=== PATIENT | male | born 1960 | race Caucasian/White ===

== ENCOUNTER 2019-05-13 02:14 | Inpatient (IN) | payer MEDICAID, OTHER ==
[~2019-05-13] VITALS: Ht 180.3 cm; Wt 90.3 kg
--- NOTE | 2019-05-13 02:55 | NUR ---
PT BIB RA 889 WITH A C/O RUE PAIN AND BLE PAIN. PT HAS BLE LYMPHEDEMA, BLE WEEPING ULCERS, C/O DIFFICULTY WALKING AND WEAKNESS. PT HAS SMALL WOUNDS/SCAB ALL OVER HIS BLE, BUE, NECK AND FACE. PT HAS A WOUND ON LT THIGH. PT IS C/O SEVERE PAIN IN BUE AND BLE EXTREMITIES. PT WAS TRIAGED AND TAKEN TO ER 2. PT WAS PLACED ON THE MONITOR AND CONTINUOUS PULSE OX.
--- NOTE | 2019-05-13 03:28 | NUR ---
CALLING PT'S , ARI, AT [phone].
--- NOTE | 2019-05-13 03:38 | NUR ---
PT'S ARI ARRIVED AND IS AT THE BEDSIDE.
--- NOTE | 2019-05-13 04:21 | NUR ---
DR CHAMBERLAIN IS AT THE BEDSIDE.
[2019-05-13] MEDS ORDERED: VANCOMYCIN 1 GM in IV D5W 250 ML IV ONE (04:30)
[2019-05-13] MEDS ORDERED: ONDANSETRON 4 MG TAB.RAPDIS SL ONE (04:30)
[2019-05-13] MEDS ORDERED: HYDROMORPHONE INJ 2 MG/ML DISP.SYRIN IM ONE (04:30)
[2019-05-13] MEDS ORDERED: ONDANSETRON 4 MG TAB.RAPDIS ONE (04:34)
[2019-05-13] MEDS ORDERED: HYDROMORPHONE INJ 2 MG/ML DISP.SYRIN ONE (04:34)
[2019-05-13 04:56] LABS: RED BLOOD CELL COUNT(AUTO) 3.64 MIL/uL (4.5-6.0)
[2019-05-13 05:00] LABS: BASOPHILS % (AUTO) 0.3 % (0.0-2.0); HEMATOCRIT 28 % (39-51); HEMOGLOBIN 8.9 g/dL (13.5-17.5); LYMPHOCYTES # (AUTO) 1.5 /CMM (0.8-4.8); LYMPHOCYTES % (AUTO) 9.9 % (20.0-44.0); MEAN CORPUSCULAR HGB CONC 33 g/dl (31.0-36.0); MEAN CORPUSCULAR VOLUME 75 fL (80-96); MONOCYTES # (AUTO) 0.7 /CMM (0.1-1.30); MONOCYTES % (AUTO) 4.6 % (2.0-12.0); NEUTROPHILS # (AUTO) 13.1 /CMM (1.8-8.9); NEUTROPHILS % (AUTO) 84.2 % (43.0-81.0); PLATELET COUNT (AUTO) 476 /CMM (150-450); WHITE BLOOD COUNT (AUTO) 15.6 K/uL (4.3-11.0)
[2019-05-13 05:06] LABS: CALCIUM, SERUM 8.2 mg/dL (8.5-10.1); CREATININE 0.8 mg/dL (0.6-1.3); POTASSIUM 4.3 mmol/L (3.5-5.1)
[2019-05-13 05:12] LABS: ALBUMIN 1.7 g/dL (3.4-5.0); BILIRUBIN,TOTAL 0.2 mg/dL (0.2-1.0); TOTAL PROTEIN, SERUM 9.5 g/dL (6.4-8.2)
--- NOTE | 2019-05-13 05:28 | NUR ---
PT TO BE ADMITTED WITHOUT AN IV. PT TO GET ANTIBIOTICS AND A PICC LINE WHEN ADMITTED, PER DR. CHAMBERLAIN
--- NOTE | 2019-05-13 05:38 | NUR ---
PT IS GOING TO 321-1 MS/
--- NOTE | 2019-05-13 05:57 | NUR ---
REPORT GIVEN TO NOAH DIETZ
--- NOTE | 2019-05-13 06:20 | NUR ---
PT TRANSPORTED TO [facility] VIA [facility] PER PROTOCOL
--- NOTE | 2019-05-13 06:25 | NUR ---
MS/RN NOTES RECEIVED PT. FROM ER VIA MIKE. PT. IS AWAKE, ALERT AND ORIENTED X3. BREATHING EVEN AND UNLABORED ON ROOM AIR. NO SOB, RESPIRATORY DISTRESS NOTED AT THIS TIME. PT. COMPLAINING OF PAIN 5/10 IN HIS BLE AND RIGHT UPPER ARM. PT. STATES THE PAIN IS TOLERABLE AND MUCH IMPROVED FROM EARLIER. ORIENTED PT. TO ROOM. PT. HAS NO IV ACCESS, PER ER NURSE PT. IS PENDING PICC LINE INSERTION. PT. VITAL SIGNS STABLE. WILL ENDORSE [facility]. TO [facility] FOR AD[facility].
[2019-05-13] MEDS ORDERED: MAG HYDROX/AL HYDROX/SIMETH 30 ML UDC PO PRN (06:30)
[2019-05-13] MEDS ORDERED: ZOLPIDEM TARTRATE 5 MG TABLET PO PRN (06:30)
[2019-05-13] MEDS ORDERED: Z GUARD REMEDY 2 OZ OINT TP PRN (06:30)
[2019-05-13] MEDS ORDERED: HYDROCODONE/APAP 5/325MG 1 EACH TABLET PO PRN (06:30)
[2019-05-13] MEDS ORDERED: ONDANSETRON HCL/PF 4 MG/2 ML VIAL IVP PRN (06:30)
[2019-05-13] MEDS ORDERED: MAGNESIUM HYDROXIDE 30 ML UDC PO PRN (06:30)
[2019-05-13] MEDS ORDERED: ACETAMINOPHEN 325 MG TABLET PO PRN (06:30)
--- NOTE | 2019-05-13 07:40 | NUR ---
MS RN ADMITTING NOTES PATIENT RECEIVED VIA GURNEY PER REPAIRING CALIBRATOR. PATIENT AWAKE, A/O X3; PATIENT RESTING COMFORTABLY IN BED; BREATHING EVEN AND UNLABORED; NO S/S OF ACUTE RESPIRATORY DISTRESS NOTED; VITAL SIGNS STABLE; BP: 127/74, PULSE 95 AND RR: 18. PATIENT DENIES SOB; PATIENT VERBALIZED 5/10 PAIN, VERBALIZED PAIN IS MUCH TOLERABLE THAN COMPARED TO YESTERDAY; PATIENT WOUNDS ASSESSED AND PHOTOS TAKEN ACCORDINGLY PER PROTOCOL; WOUNDS CLEANED WITH NS AND DRESSED WITH KERLIX AND MEPILEX; PATIENT HAS NO IV ACCESS AT THIS TIME; AWAITING PICC LINE INSERTION; BED LOCKED IN LOWEST POSITION; SAFETY PRECAUTIONS IN PLACE; SIDE RAILS UP X2; CALL LIGHT WITHIN EASY REACH; WILL CONTINUE TO MONITOR.
[2019-05-13] MEDS ORDERED: FEE PK DOSING 1 MIN EA MC ONE (07:57)
[2019-05-13] MEDS ORDERED: TEMA15CA PO (08:04)
[2019-05-13] MEDS ORDERED: TRAM50TA2 PO (08:07)
[2019-05-13 08:40] VITALS: BP 127/74
--- NOTE | 2019-05-13 09:30 | NUR ---
MS RN NOTES UNABLE TO ADMINISTER ORDERED IV MEDICATIONS; UNABLE TO OBTAIN IV ACCESS D/T GENERALIZED EDEMA. AWAITING IV ACCESS/ PICC LINE INSERTION
--- NOTE | 2019-05-13 10:23 | NUR ---
WOUND CARE CONSULT: PT PRESENTS WITH REDNESS, SWELLING TO LOWER LEGS, THIGHS AND ARMS WITH CRUSTED WOUNDS TO LOWER LEGS, PURULENT AREA TO LEFT THIGH AND DRY WOUNDS/LESIONS ON FACE, ALL PRESENT ON ADMISSION. RECOMMEND SURGICAL AND DPM CONSULTS. DR MAKAYLA VENCES AND DR BORJAS NOTIFIED OF CONSULT REQUESTS. PT CONTINENT AT THIS TIME. PT REFUSED FULL SKIN ASSESSMENT OF RT LEG AND SACRAL AREA. WILL SEE PRN. RECOMMENDATIONS MADE FOR SKIN PROTECTION AND WOUND CARE OF THIGHS. DISCUSSED WITH NURSING STAFF. DEFER TO DPM FOR LOWER LEGS. MD IN AGREEMENT WITH PLAN OF CARE. Addendum: 05/13/19 at 1031 by MICHAEL NARANJO WNDNU PT REFUSED TO HAVE DRESSINGS REMOVED FROM RT ARM AND RT THIGH. RECOMMENDATIONS MADE FOR WOUND CARE BASED ON PHOTOS.
--- NOTE | 2019-05-13 10:58 | NUR ---
rn notes administered narco 5/326 mg po prn for generalized pain , v/s stable. encouraged to increase fluid intake, patient using urinal, seen wound nurse.
--- NOTE | 2019-05-13 13:30 | NUR ---
MS RN NOTES L BASILIC LINE 46 X 2CM INSERTED TODAY 05/13/19 BY FOREIGN POLICY OFFICER. INTACT AND PATENT; FLUSHING WELL; NO S/S OF INFILTRATION NOTED.
[2019-05-13] MEDS: CEFTRIAXONE 1 G in IV D5W 50 ML IV SCH (14:18)
[2019-05-13] MEDS: MORPHINE SULFATE INJ 2 MG/ML DISP.SYRIN IV PRN (14:24)
--- NOTE | 2019-05-13 14:24 | NUR ---
rn notes administered morphine sulfate 1 mg/ml iv push per patient request 12/14, v/s taken bp-130/76,p-80,
[2019-05-13] MEDS: VANCOMYCIN 1.5 GM in IV D5W 500 ML IV SCH ×2 (15:06→21:47)
--- NOTE | 2019-05-13 15:44 | NUR ---
MS RN NOTES WOUND CULTURE SWABS OBTAINED FROM BILATERAL UPPER THIGHS, (RIGHT AND LEFT THIGH WOUNDS).
[2019-05-13 16:33] VITALS: BP 145/89
--- NOTE | 2019-05-13 17:29 | NUR ---
MS ZAMORA NOTES GAVE REPORT TO NOAH ZABALA FROM [facility]. AWAITING AMBULANCE FOR TRANSFER. Addendum: 05/13/19 at 1821 by CHAD CAMACHO RN WRONG ENTRY.
--- NOTE | 2019-05-13 18:29 | NUR ---
MS RN CLOSING NOTES PATIENT RESTING COMFORTABLY IN BED; AWAKE, A/O X4; BREATHING EVEN AND UNLABORED; NO S/S OF ACUTE RESPIRATORY DISTRESS NOTED; PATIENT DENIES SOB; PATIENT VERBALIZED BLE PAIN BUT IS MANAGEABLE; L BASILIC VEIN PICC LINE, INTACT AND PATENT; FLUSHING WELL; NO S/S OF REDNESS OR INFILTRATION NOTED; MULTIPLE WOUNDS CLEANSED WITH NS, AND DRESSED ACCORDINGLY, KERLIX AND MEPILEX APPLIED; BED LOCKED IN LOWEST POSITION; SAFETY PRECAUTIONS IN PLACE, SIDE RAILS UP X2; CALL LIGHT WITHIN EASY REACH. WILL ENDORSE CONTINUITY OF CARE TO ONCOMING SHIFT.
--- NOTE | 2019-05-13 19:45 | NUR ---
MS RN OPENING NOTES RECEIVED PATIENT FROM MORNING SHIFT. ALERT AND ORIENTED X 3 VERBALLY RESPONSIVE AND ABLE TO FOLLOW DIRECTIONS. BREATHING REGULAR AND UNLABORED ON ROOM AIR. LEFT ARM PICC LINE INTACT AND PATENT, FLUSHING WELL WITH NO BLEEDING OR S/S OF INFILTRATION NOTED. BODY ASSESSMENT DONE, SEEN WITH MULTIPLE SCABS AND OPEN WOUNDS AND GENERALIZED EDEMA. NO REPORTS OF PAIN/DISCOMFORT OF THE TIME. BED LOW AND LOCKED ON SEMI FOWLERS POSITION. CALL LIGHT IN REACH. WILL CONTINUE TO MONITOR.
[2019-05-13 20:00] VITALS: BP 137/85
[2019-05-13 22:00] VITALS: BP 137/85
[2019-05-14] MEDS: MORPHINE SULFATE INJ 2 MG/ML DISP.SYRIN IV PRN ×4 (03:29→20:49)
--- NOTE | 2019-05-14 03:40 | NUR ---
MS RN NOTES PATIENT COMPLAINED OF 9/10 BILATERAL LEG PAIN, MORPHINE 1MG GIVEN VIA IV PUSH. VITAL SIGNS WNL. NON-PHARMACOLOGICAL INTERVENTIONS PROVIDED. WILL CONTINUE TO MONITOR.
--- NOTE | 2019-05-14 05:40 | NUR ---
MS RN NOTES CONSENTS FOR CT CHEST, ABDOMEN/PELVIS WITH CONTRAST AND US NEEDLE GUIDED BIOPSY SIGNED AND WITNESSED. ATTACHED TO CHART.
--- NOTE | 2019-05-14 06:30 | NUR ---
MS RN CLOSING NOTES PATIENT IN BED ALERT AND ORIENTED X 3 VERBALLY RESPONSIVE AND ABLE TO FOLLOW DIRECTIONS. BREATHING REGULAR AND UNLABORED ON ROOM AIR. LEFT ARM PICC LINE INTACT AND FLUSHING WELL. ON-GOING TREATMENTS PROVIDED ON MULTIPLE SCATTERED WOUNDS. NO REPORTS OF PAIN/DISCOMFORT OF THE TIME. BED LOW AND LOCKED ON SEMI FOWLERS POSITION. CALL LIGHT IN REACH. WILL ENDORSE TO MORNING SHIFT FOR NILES.
--- NOTE | 2019-05-14 07:56 | NUR ---
MS RN OPENING NOTES RECEIVED PATIENT IN BED, AWAKE, A/O X 3. PATIENT ON ROOM AIR BREATHING WITHOUT EFFORT. NO SIGNS OF DISTRESS OR SOB NOTED AT THIS TIME. PATIENT DENIES PAIN AT THIS MOMENT. LEFT ARM PICC LINE PRESENT, INTACT AND PATENT. NO SIGNS OF INFILTRATION AT THE SITES. MULTIPLE SCATTERED WOUNDS PRESENT ON THE BODY. SAFETY PRECAUTIONS IN PLACE: BED IN LOW POSITION AND LOCKED, RAILS UP X 2, CALL LIGHT WITHIN REACH. WILL CONTINUE TO MONITOR PATIENT.
[2019-05-14 08:00] VITALS: BP 135/93
[2019-05-14 08:01] LABS: ALBUMIN 1.9 g/dL (3.4-5.0); BILIRUBIN,TOTAL 0.5 mg/dL (0.2-1.0); CREATININE 0.8 mg/dL (0.6-1.3); PHOSPHORUS 3.9 mg/dL (2.5-4.9); POTASSIUM 3.9 mmol/L (3.5-5.1); TOTAL PROTEIN, SERUM 10.4 g/dL (6.4-8.2)
[2019-05-14 08:17] LABS: BASOPHILS % (AUTO) 0.1 % (0.0-2.0); EOSINOPHILS % (AUTO) 1.5 % (0.0-6.0); HEMATOCRIT 29 % (39-51); HEMOGLOBIN 9.5 g/dL (13.5-17.5); LYMPHOCYTES # (AUTO) 1.8 /CMM (0.8-4.8); LYMPHOCYTES % (AUTO) 10.6 % (20.0-44.0); MEAN CORPUSCULAR HGB CONC 33 g/dl (31.0-36.0); MEAN CORPUSCULAR VOLUME 75 fL (80-96); MONOCYTES # (AUTO) 1.1 /CMM (0.1-1.30); MONOCYTES % (AUTO) 6.5 % (2.0-12.0); NEUTROPHILS # (AUTO) 13.6 /CMM (1.8-8.9); NEUTROPHILS % (AUTO) 81.3 % (43.0-81.0); PLATELET COUNT (AUTO) 581 /CMM (150-450); RED BLOOD CELL COUNT(AUTO) 3.82 MIL/uL (4.5-6.0); WHITE BLOOD COUNT (AUTO) 16.7 K/uL (4.3-11.0)
[2019-05-14] MEDS: CEFTRIAXONE 1 G in IV D5W 50 ML IV SCH (08:25)
--- NOTE | 2019-05-14 08:30 | NUR ---
MS RN NOTES PATIENT COMPLAIN OF SEVERE LEG PAIN (01/14). HE REFUSED NORCO 5-325 STATING IT DOES NOT HELP HIM. PRN MORPHINE WAS GIVEN. WILL CONTINUE TO MONITOR PATIENT.
[2019-05-14 08:40] LABS: THYROID STIMULATING HORMONE 5.266 uIU/mL (0.358-3.74)
[2019-05-14] MEDS ORDERED: IV NS 0.9% 250 ML IV ONE ×2 (09:41→10:37)
[2019-05-14] MEDS ORDERED: IOHEXOL-350 100 ML VIAL IV ONE (09:41)
[2019-05-14] MEDS: VANCOMYCIN 1.5 GM in IV D5W 500 ML IV SCH ×2 (10:17→21:31)
[2019-05-14] MEDS ORDERED: IOHEXOL-300 100 ML VIAL IV ONE (10:37)
[2019-05-14] MEDS ORDERED: CT SWABBABLE VALVE TRANS SET 1 EA INFUS.SET MC ONE (10:37)
--- NOTE | 2019-05-14 10:58 | NUR ---
Social service consult requested by Dr. Mcintosh due to pt. coming from home and has wounds. Per MD H&P notes, pt has a history of untreated lymphoma for 3 years due to reasons that MD can't quite get straight from him but involves him not liking his oncologist. He has sores all over his body in different stages of healing some are quite large, and both his legs are hyperpigmented with 4+ lymphedema and appear to be infected bilaterally. VACUUM DRIER OPERATOR and rehabilitation case coordinator Odalys met with the pt. bedside. Pt. is alert and oriented x4. Pt's mood is congruent. Pt. resides with his Quynh, in an apartment in [place]. Pt's emergency contact is his Quynh . Pt. has an in-home IHSS caregiver named Julian. Pt. receives approximately 180 + hrs of IHSS per month. Pt. appears to be wanting to go home and states, " the sooner I go home, the better." Pt. is not on dialysis. Pt. needs assistance with his ADL's/IADLS. Pt. was offered SNF placement, however pt. wants to go home. display department manager Odalys to arrange home health services at time of discharge. Pt's IHSS caregiver Julian will filler picker the pt. at time of discharge. No other social service needs are requested at this time. VACUUM DRIER OPERATOR is available, if needed.
--- NOTE | 2019-05-14 11:22 | NUR ---
RN MS NOTES DR. SMART AND DR. VEGA INFORMED OF PT'S CT SCAN OF ABDOMEN AND PELVIS.
--- NOTE | 2019-05-14 16:04 | NUR ---
MS RN NOTES PATIENT COMPLAIN OF SEVERE LEG PAIN (01/14). PRN MORPHINE WAS GIVEN. WILL CONTINUE TO MONITOR PATIENT.
[2019-05-14 16:39] VITALS: BP 130/77
--- NOTE | 2019-05-14 18:44 | NUR ---
MS RN CLOSING NOTES PATIENT IN BED, AWAKE, WATCHING TV. PATIENT IS A/O X 3/4, ON ROOM AIR BREATHING EVENLY AND WITH NO S/S OF DISTRESS OR SOB NOTED AT THIS TIME. PATIENT DENIES PAIN AT THE MOMENT. L BASILIC PICC LINE PRESENT, INTACT AND FLUSHING WELL. NO SIGNS OF INFILTRATION AT THE SITES. WOUND SITES CLEANED AND MEPILEX APPLIED. ALL NEEDS WERE MET. SAFETY MEASURES IN PLACE: BED IN LOW POSITION AND LOCKED, RAILS UP X 2, CALL LIGHT WITHIN REACH. WILL ENDORSE TO SENIOR MEDICAL TECHNOLOGIST NURSE.
--- NOTE | 2019-05-14 19:35 | NUR ---
MS RN NOTES RECEIVED ON BED A/O X4,BREATHING EASY,NO SOB,NOTED MULTIPLE DRY WOUND ON BOTH UPPER AND LOWER EXTREMITIES.WITH LEFT UPPER ARM PICC LINE FOR MEDS.CLAIMED GENERALIZED PAIN THIS TIME 9/10 ON PAIN SCALE,WILL MEDICATE.CALL LIGHT IN REACH,NEEDS ANTICIPATED.
[2019-05-14 20:00] VITALS: BP 122/71
--- NOTE | 2019-05-14 20:49 | NUR ---
MS RN NOTES PAIN MANAGEMENT C/O GENERALIZED PAIN 9/10 ON PAIN SCALE,MEDICATED WITH MORPHINE 1MG IV ORDERED.
--- NOTE | 2019-05-14 21:00 | NUR ---
MS RN NOTES VANCOMYCIN TROUGH WAS 10,DOSE ADMINISTERED
[2019-05-15] MEDS: MORPHINE SULFATE INJ 2 MG/ML DISP.SYRIN IV PRN ×4 (01:05→14:43)
--- NOTE | 2019-05-15 01:05 | NUR ---
MS RN NOTES AWAKE,C/O GENERALIZED PAIN 8/10 ON PAIN SCALE,MEDICATED WITH MORPHINE 1MG IV ORDERED
--- NOTE | 2019-05-15 03:00 | NUR ---
MS RN NOTES SLEEPING THIS TIME
--- NOTE | 2019-05-15 05:13 | NUR ---
AGRICULTURE MANAGER NOTES AWAKE,C/O BILATERAL LOWER EXTREMITIES PAIN 9/10 ON PAIN SCALE,MORPHINE 1MG IV GIVEN ORDERED.
--- NOTE | 2019-05-15 06:53 | NUR ---
MS RN NOTES SLEPT WITH INTERVALS,PAIN MANAGEMENT EFFECTIVE FOR FEW HOURS ONLY.INSTRUCTED TO KEEP LOWER EXTREMITIES ELEVATED.IV ABX TOLERATED WELL.IN NO ACUTE DISTRESS.WILL ENDORSE TO DAY NURSE FOR NILES.
[2019-05-15 07:06] LABS: BASOPHILS % (AUTO) 0.3 % (0.0-2.0); EOSINOPHILS % (AUTO) 2.2 % (0.0-6.0); HEMATOCRIT 28 % (39-51); HEMOGLOBIN 8.9 g/dL (13.5-17.5); LYMPHOCYTES # (AUTO) 1.6 /CMM (0.8-4.8); MEAN CORPUSCULAR HGB CONC 32 g/dl (31.0-36.0); MEAN CORPUSCULAR VOLUME 75 fL (80-96); NEUTROPHILS # (AUTO) 9.3 /CMM (1.8-8.9); NEUTROPHILS % (AUTO) 76.5 % (43.0-81.0); PLATELET COUNT (AUTO) 567 /CMM (150-450); RED BLOOD CELL COUNT(AUTO) 3.67 MIL/uL (4.5-6.0); WHITE BLOOD COUNT (AUTO) 12.2 K/uL (4.3-11.0)
--- NOTE | 2019-05-15 07:20 | NUR ---
M/S RN NOTES PATIENT AWAKE IN BED, ALERT AND ORIENTED X4, NO RESPIRATORY DISTRESS, NO C/O PAIN AT THIS TIME. PATIENT'S SKIN WARM TO TOUCH. IV PICC LINE INTACT AND PATENT. PATIENT'S NEEDS ATTENDED, BED ON LOWEST LOCKED POSITION, CALL LIGHT WITHIN REACH. WILL CONTINUE TO MONITOR PATIENT.
[2019-05-15 07:22] LABS: CALCIUM, SERUM 8.6 mg/dL (8.5-10.1); CREATININE 0.7 mg/dL (0.6-1.3); PHOSPHORUS 4.4 mg/dL (2.5-4.9); POTASSIUM 4.2 mmol/L (3.5-5.1)
[2019-05-15] MEDS: CEFTRIAXONE 1 G in IV D5W 50 ML IV SCH (07:30)
[2019-05-15 08:00] VITALS: BP 132/80
[2019-05-15 08:09] LABS: FREE PSA < 0.06 ng/mL (0.00-45)
[2019-05-15 08:25] LABS: PROSTATE SPECIFIC ANTIGEN SCR < 0.13 ng/mL (0.00-4.00)
[2019-05-15] MEDS: VANCOMYCIN 1.5 GM in IV D5W 500 ML IV SCH (09:24)
[2019-05-15] MEDS ORDERED: FERR325T23 PO (10:51)
[2019-05-15] MEDS ORDERED: ALLA266C2 TP (10:51)
[2019-05-15] MEDS ORDERED: CEPH-570 PO (10:51)
[2019-05-15 11:59] LABS: BAND % (MANUAL) 1 % (0.0-5.0); EOSINOPHILS % (MANUAL) 1 % (0-4); LYMPHOCYTES % (MANUAL) 14 % (16-48); MONOCYTES % (MANUAL) 6 % (0-11.0); MYELOCYTES % 6 % (0-0); NEUTROPHILS % (MANUAL) 72 (42-76)
[2019-05-15] MEDS ORDERED: SOD FERRIC GLUC 125 MG in IV NS 0.9% 100 ML IV SCH (14:00)
[2019-05-15 16:00] VITALS: BP 143/80
--- NOTE | 2019-05-15 19:58 | NUR ---
M/S RN NOTES PATIENT DISCHARGED IN STABLE CONDITION, NO RESPIRATORY DISTRESS, NO C/O PAIN AT THIS TIME. SKIN WARM TO TOUCH. SKIN ASSESSED, MULTIPLE SCABS AND OPEN WOUNDS, PATIENT REFUSED FOR PHOTOS. PATIENT GIVEN DISCHARGE INSTRUCTIONS, VERBALIZED UNDERSTANDING. BELONGINGS ACCOUNTED FOR AND SIGNED. IV PICC LINE REMOVED AND APPLIED PRESSURE DRESSING. PATIENT'S NEEDS ATTENDED. PATIENT LEFT WITH PARAMEDICS AND CAREGIVER DESIREE MCKEON.
[2019-05-16 15:06] LABS: *SPE A/G RATIO 0.3 (0.7-1.7); *SPE ALBUMIN 2.1 g/dL (2.9-4.4); *SPE ALPHA-1-GLOBULIN 0.4 g/dL (0.0-0.4); *SPE ALPHA-2-GLOBULIN 1.2 g/dL (0.4-1.0); *SPE BETA GLOBULIN 1.3 g/dL (0.7-1.3); *SPE GLOBULIN, TOTAL 7.2 g/dL (2.2-3.9); *SPE M-SPIKE 2.1 g/dL (Not Observed); *SPEGAMMA GLOBULIN 4.1 g/dL (0.4-1.8)
== END 2019-05-15 19:40 | disposition home or self-care (01) | DRG 710 ==
LOC: ER 02:15 → MED 05:41
PROVIDERS: ADMIT Student in an Organized Health Care Education/Training Program; ATTEND Student in an Organized Health Care Education/Training Program
PROC: 05H633Z Insertion of Infusion Device into Left Subclavian Vein, Percutaneous Approach (ICD-10-PCS; principal; 2019-05-13)
PROC: 07BJ3ZX Excision of Left Inguinal Lymphatic, Percutaneous Approach, Diagnostic (ICD-10-PCS; 2019-05-14)
DX: A41.9 Sepsis, unspecified organism (principal); E44.0 Moderate protein-calorie malnutrition; L03.115 Cellulitis of right lower limb; E87.1 Hypo-osmolality and hyponatremia; K76.0 Fatty (change of) liver, not elsewhere classified; E88.09 Other disorders of plasma-protein metabolism, not elsewhere classified; L03.116 Cellulitis of left lower limb; R16.2 Hepatomegaly with splenomegaly, not elsewhere classified; Z85.72 Personal history of non-Hodgkin lymphomas; Z98.890 Other specified postprocedural states; D50.9 Iron deficiency anemia, unspecified; Z91.19 Patient's noncompliance with other medical treatment and regimen; D64.9 Anemia, unspecified; D47.3 Essential (hemorrhagic) thrombocythemia; Z68.27 Body mass index [BMI] 27.0-27.9, adult; M79.662 Pain in left lower leg; M79.661 Pain in right lower leg; R74.8 Abnormal levels of other serum enzymes; K80.20 Calculus of gallbladder without cholecystitis without obstruction; N28.9 Disorder of kidney and ureter, unspecified; N28.1 Cyst of kidney, acquired; Z85.79 Personal history of other malignant neoplasms of lymphoid, hematopoietic and related tissues
CPT/HCPCS: 36415; 36569; 71260-TC; 76700-TC; 76942-TC; 80048-TC; 80053-TC; 80061-TC; 80202-TC; 82378; 82728-TC; 82784; 83540-TC; 83735-TC; 84100-TC; 84153-TC; 84154-TC; 84155; 84165; 84443-TC; 85025-TC; 85610-TC; 85730-TC; 86301; 86334; 87040-TC; 87070-TC; 87081-TC; 87186-TC; 97116-TC; 97530-TC; A6403; C1751; G0378; J0696; J1170; J2270; J2916; J3370; J7030; J7040; J7050; J7060; Q0162; Q9967

== ENCOUNTER 2019-09-30 17:42 | Inpatient (IN) | payer MEDICAID ==
[~2019-09-30] VITALS: Ht 180.3 cm; Wt 91.6 kg
[~2019-09-30 17:42] MED LIST: ALLA266C2 TP; CEPH-570 PO; FERR325T23 PO; TEMA15CA PO; TRAM50TA2 PO
--- NOTE | 2019-09-30 17:45 | NUR ---
PT BIB RA 102 FROM HOME C/O FEVER AND SOB, PER REPORT CAREGIVER AND FAMILY UNABLE TO CARE FOR THE PT, PT IS AAOX3, NOTED RESPIRATORY DISTRESS ,HOOKED TO PLANT ENGINEERING SUPERVISOR, KEPT RESTED AND COMFORTABLE, WILL CONTINUE TO MONITOR.
--- NOTE | 2019-09-30 17:50 | NUR ---
SEEN AND EXAMINED BY .
--- NOTE | 2019-09-30 17:52 | NUR ---
CALLED NURSING SUP FOR MIDLINE RN, [facility] ETA [phone]
[2019-09-30] MEDS ORDERED: IV NS 0.9% 500 ML BAG IV ONE (18:00)
[2019-09-30] MEDS ORDERED: PIPERACILLIN /TAZOBACTAM 3.375 G in IV D5W 50 ML IV ONE (18:00)
[2019-09-30] MEDS ORDERED: VANCOMYCIN 1 GM in IV D5W 250 ML IV ONE (18:00)
[2019-09-30] MEDS ORDERED: ACETAMINOPHEN ES 500 MG TABLET PO ONE (18:00)
[2019-09-30 18:13] LABS: BASOPHILS % (AUTO) 0.2 % (0.0-2.0); HEMATOCRIT 32 % (39-51); HEMOGLOBIN 10.7 g/dL (13.5-17.5); LYMPHOCYTES # (AUTO) 1.5 /CMM (0.8-4.8); LYMPHOCYTES % (AUTO) 8.8 % (20.0-44.0); MEAN CORPUSCULAR HGB CONC 33 g/dl (31.0-36.0); MEAN CORPUSCULAR VOLUME 76 fL (80-96); MONOCYTES # (AUTO) 1.7 /CMM (0.1-1.30); MONOCYTES % (AUTO) 10.1 % (2.0-12.0); NEUTROPHILS # (AUTO) 13.9 /CMM (1.8-8.9); NEUTROPHILS % (AUTO) 80.9 % (43.0-81.0); PLATELET COUNT (AUTO) 446 /CMM (150-450); RED BLOOD CELL COUNT(AUTO) 4.22 MIL/uL (4.5-6.0); WHITE BLOOD COUNT (AUTO) 17.2 K/uL (4.3-11.0)
[2019-09-30] MEDS ORDERED: ACETAMINOPHEN ES 500 MG TABLET ONE (18:15)
--- NOTE | 2019-09-30 18:15 | NUR ---
ER PHLEB AT BEDSIDE FOR BLOOD DRAW.
--- NOTE | 2019-09-30 18:30 | NUR ---
ROD STRAIGHTENER AT BEDSIDE FOR XRAY.
--- NOTE | 2019-09-30 18:35 | NUR ---
URINE SPECIMEN COLLECTED VIA PALMER CATH AND SENT TO LAB.
--- NOTE | 2019-09-30 18:40 | NUR ---
PT HAS BLE EDEMA, WITH FLAKING SKIN ON THE SOLES OF BILATERAL FEET. PT ALSO HAS RUE EDEMA. PT IS NON AMBULATORY AND HAS A DAVID LIFT SHEET UNDER HIM. PT'S BUE ARE SCARRED AND 20G IV WAS STARTED IN RUE. 22G IV IN RT HAND IS NOT WORKING AND HAS BEEN REMOVED. AREA WAS COVERED WITH A 2X2 AND TAPE. NO SIGNS OF BLEEDING NOTED.
--- NOTE | 2019-09-30 18:50 | NUR ---
CALLED PT'S ARI NO ANSWER.
[2019-09-30 18:53] LABS: ALANINE AMINOTRANSFERASE 34 U/L (12-78); ALBUMIN 2.1 g/dL (3.4-5.0); ALKALINE PHOSPHATASE 91 U/L (46-116); ASPARTATE AMINOTRANSFERASE 85 U/L (15-37); B-TYPE NATRIURETIC PEPTIDE 629 PG/ML (0-125); BILIRUBIN,TOTAL 0.8 mg/dL (0.2-1.0); CARBON DIOXIDE 19 mmol/L (21-32); CHLORIDE 88 mmol/L (98-107); CREATININE 2.5 mg/dL (0.6-1.3); GLUCOSE 139 mg/dL (74-106); POTASSIUM 4.6 mmol/L (3.5-5.1); SODIUM SERUM 121 mmol/L (136-145); TOTAL PROTEIN, SERUM 9.9 g/dL (6.4-8.2)
--- NOTE | 2019-09-30 18:53 | NUR ---
,ARI CALLED AT [phone],SPOKE WITH DR RODRIGUEZ
[2019-09-30 18:55] LABS: UREA NITROGEN, BLOOD 116 mg/dL (7-18)
--- NOTE | 2019-09-30 18:55 | NUR ---
BUN IS 116 MD RODRIGUEZ INFORMED
[2019-09-30 18:56] LABS: APPEARANCE,URINE Clear (CLEAR); BILIRUBIN,URINE Negative (NEGATIVE); BLOOD, URINE Small Ery/uL (NEGATIVE); COLOR,URINE Orange (YELLOW); KETONES,URINE Negative (NEGATIVE); LEUKOCYTE ESTERASE ,URINE Negative (NEGATIVE); NITRITE, URINE Negative (NEGATIVE); PROTEIN,URINE Negative (NEGATIVE); UGLUCOSE Negative (NEGATIVE); UROBILINOGEN,URINE 0.2 EU/dL (0.2)
[2019-09-30 19:02] LABS: CREATINE KINASE, TOTAL 1752 U/L (39-308); FERRITIN 281 ng/mL (8-388)
[2019-09-30 19:09] LABS: BACTERIA,URINE Rare /HPF (None Seen); SQUAMOUS EPITHELIAL CELL,UR Few /HPF (None Seen); WBC,URINE NONE SEEN /HPF (0-3)
--- NOTE | 2019-09-30 19:22 | NUR ---
RT IS AT THE BEDSIDE. PT IS GOING ON HIGH FLOW O2
--- NOTE | 2019-09-30 19:24 | NUR ---
JESSI, MIDLINE ASSEMBLER SEAT, COMING AT 1930
--- NOTE | 2019-09-30 19:29 | NUR ---
SHOAIB BOWEN IS AT THE BEDSIDE FOR MIDLINE INSERTION.
--- NOTE | 2019-09-30 19:35 | NUR ---
RT CALLED FOR HIGH FLOW O2 ADJUSTMENT. NC IS SLIPPING OUT OF PT'S NOSE.
--- NOTE | 2019-09-30 19:36 | NUR ---
RT IS AT THE BEDSIDE.
--- NOTE | 2019-09-30 19:57 | NUR ---
PT APPEARS TO BE RESTING COMFORTABLY. PT IS ON THE MONITOR AND CONTINUOUS PULSE OX. PT'S O2 SAT IS 95%
[2019-09-30] MEDS ORDERED: TRAMADOL HCL 50 MG TABLET PO PRN (21:00)
[2019-09-30] MEDS ORDERED: MAG HYDROX/AL HYDROX/SIMETH 30 ML UDC PO PRN (21:00)
[2019-09-30] MEDS ORDERED: CEFTRIAXONE 1 G in IV D5W 50 ML IV SCH (21:00)
[2019-09-30] MEDS ORDERED: ZOLPIDEM TARTRATE 5 MG TABLET PO PRN (21:00)
[2019-09-30] MEDS ORDERED: MAGNESIUM HYDROXIDE 30 ML UDC PO PRN (21:00)
[2019-09-30] MEDS ORDERED: ONDANSETRON HCL/PF 4 MG/2 ML VIAL IVP PRN (21:00)
[2019-09-30] MEDS ORDERED: Z GUARD REMEDY 2 OZ OINT TP PRN (21:00)
[2019-09-30 21:24] LABS: ABG BASE EXCESS -3.8 mmol/L; ABG OXYGEN SATURATION 95.7 % (92.0-98.5); ABG PCO2 31.9 mmHg (35.0-45.0); ABG PH 7.415 (7.350-7.450); ABG PO2 82.5 mmHg (75.0-100.0); AaDO2 562.6 mmHg; COHb 0.3 % (0.5-1.5); MetHb 0.2 % (0.0-1.5); O2Hb 95.2 % (94.0-97.0); SITE, ABG Left Radial; VENT MODE, BG HFNC 95% FIO2 60LPM 34C
--- NOTE | 2019-09-30 21:29 | NUR ---
CALLED TO GIVE REPORT TO ICU. WILL CALL BACK IN 10 MINS.
--- NOTE | 2019-09-30 21:38 | NUR ---
RT AT BEDSIDE
--- NOTE | 2019-09-30 21:38 | NUR ---
SEEN BY DR. JULIO.
--- NOTE | 2019-09-30 21:42 | NUR ---
CALLING REPORT NOAH KRUSE
[2019-09-30] MEDS ORDERED: TEMAZEPAM 15 MG CAPSULE PO SCH (22:00)
--- NOTE | 2019-09-30 22:15 | NUR ---
RECEIVED PATIENT FROM ER, AWAKE,ALERT ,TACHYPNEIC WITH LABORED BREATHING,ON HIGH FLOW O2 (60 LITERS/ 95 % fio2), .NOTED EXTREMELY EDEMATOUS LOWER EXTREMITIES AND LEFT ARM, SACRAL PRESSURE INJURY WITH PARTIAL THICKNESS TISSUE LOSS.MIDLINE VIA ARIA WITH GOOD BLOOD RETURN.PATIENT ON CONTACT/DROPLET ISOLATION R/O COVID -19 ,RESULT PENDING.PATIENT IS DNR/DNI.
--- NOTE | 2019-09-30 22:24 | NUR ---
RSV SWAB DONE AND SENT TO LAB PRIOR TO PT BEING TRANSFERED.
[2019-09-30 22:30] VITALS: BP 106/58
[2019-09-30 22:45] VITALS: BP 94/64
[2019-09-30 23:00] VITALS: BP 95/56
--- NOTE | 2019-09-30 23:00 | NUR ---
SPOKE TO ARI ON THE PHONE TO CONFIRM THAT PATIENT IS DNR AND DNI AND SHE CONFIRMED IT TO BE CORRECT.
[2019-09-30] MEDS ORDERED: CEFTRIAXONE 1 G VIAL ONE (23:04)
[2019-09-30 23:15] VITALS: BP 91/60
[2019-10-01] VITALS (92 sets, daily range): BP systolic 80–144; BP diastolic 49–77
--- NOTE | 2019-10-01 | NUR ---
PATIENT CALMER AND BREATHING EASIER BUT STILL WITH LABORED BREATHING ,SATURATING 98 % ON HIGH FLOW.NOTED TO BE HYPOTENSIVE WHILE ASLEEP IN THE 80'S SYSTOLIC,WILL CLOSELY MONITOR.IF NOT PER 'S NOTES PATIENT AGREES TO HAVE PRESSORS AND ANTIBIOTICS.
--- NOTE | 2019-10-01 02:00 | NUR ---
STATUS UNCHANGED,STILL TACHYPNEIC,REMAINS AWAKE,ALERT,SLEEPS ON AND OFF.
[2019-10-01] MEDS ORDERED: NOREPINEPHRINE 8MG/250ML RTU 250 ML IV ONE (03:44)
[2019-10-01] MEDS ORDERED: NOREPINEPHRINE 8 MG in IV NS 0.9% 242 ML IV PRN (04:00)
--- NOTE | 2019-10-01 04:00 | NUR ---
BP LABILE, DROPS TO 80'S SYSTOLIC,WILL START ON LOW DOSE LEVOPHED.FEBRILE LPZQ=701.6, WILL GIVE TYLENOL AND COOLING MEASURES DONE,ICE PACK APPLIED.
[2019-10-01] MEDS: ACETAMINOPHEN 325 MG TABLET PO PRN (04:19)
--- NOTE | 2019-10-01 04:30 | NUR ---
PLACED ON HYPOTHERMIC BLANKET ,FLICQ=057.8 VIA CORE TEMPERATURE(RECTAL PROBE APPLIED).
[2019-10-01 04:48] LABS: BASOPHILS % (AUTO) 0.1 % (0.0-2.0); HEMATOCRIT 28 % (39-51); HEMOGLOBIN 9.3 g/dL (13.5-17.5); LYMPHOCYTES # (AUTO) 1.3 /CMM (0.8-4.8); LYMPHOCYTES % (AUTO) 9.2 % (20.0-44.0); MEAN CORPUSCULAR HGB CONC 33 g/dl (31.0-36.0); MEAN CORPUSCULAR VOLUME 77 fL (80-96); MONOCYTES # (AUTO) 1.9 /CMM (0.1-1.30); MONOCYTES % (AUTO) 13.5 % (2.0-12.0); NEUTROPHILS # (AUTO) 11.1 /CMM (1.8-8.9); NEUTROPHILS % (AUTO) 77.2 % (43.0-81.0); PLATELET COUNT (AUTO) 347 /CMM (150-450); RED BLOOD CELL COUNT(AUTO) 3.62 MIL/uL (4.5-6.0); WHITE BLOOD COUNT (AUTO) 14.3 K/uL (4.3-11.0)
[2019-10-01 05:06] LABS: CALCIUM, SERUM 7.6 mg/dL (8.5-10.1); MAGNESIUM 2.5 mg/dL (1.8-2.4); PHOSPHORUS 5.9 mg/dL (2.5-4.9)
--- NOTE | 2019-10-01 06:00 | NUR ---
LOOKS MORE COMFORTABLE,CALMER,BREATHING LESS LABORED ,SATURATING 98-99%.TEMP DOWN TO 102.7, STILL ON THE COOLING BLANKET. 0700 REPORT GIVEN TO ROSITA ZAMORA
[2019-10-01] MEDS ORDERED: IV NS 0.9% 1,000 ML IV PRN (07:05)
[2019-10-01] MEDS: IV NS 0.9% 1,000 ML IV SCH ×3 (07:30→17:30)
--- NOTE | 2019-10-01 07:34 | NUR ---
WOUND CARE CONSULT: REVIEWED CHART, NURSING DOCUMENTATION AND ADMISSION PHOTOS WHICH SHOW MULTIPLE WOUNDS PRESENT ON ADMISSION INCLUDING LOWER EXTREMITIES AND SACRUM, BUTTOCKS, POSTERIOR THIGHS, RT KNEE AND BACK. RECOMMEND DPM AND SURGICAL CONSULTS. DR BORJAS AND DR MAKAYLA VENCES NOTIFIED OF CONSULT REQUESTS. PT ON MAGNOLIA ISOFLEX LOW AIRLOSS BED. RECOMMENDATIONS MADE FOR SKIN PROTECTION AND WOUND CARE. DISCUSSED WITH NURSING STAFF. Addendum: 10/01/19 at 0751 by MICHAEL NARANJO WNDNU WILL SEE PRN. PADGETT IN AGREEMENT WITH PLAN OF CARE. DEFER TO DPM FOR WOUND TREATMENT OF LOWER LEGS AND FEET.
[2019-10-01 07:40] LABS: THYROID STIMULATING HORMONE 1.034 uIU/mL (0.358-3.74)
[2019-10-01] MEDS: HYDROCORTISONE SOD SUCCINATE 100 MG/2 ML VIAL IV SCH ×3 (08:56→18:18)
[2019-10-01] MEDS: HYDROXYCHLOROQUINE 200 MG TABLET PO SCH ×3 (08:57→17:00)
[2019-10-01] MEDS: FERROUS SULFATE (325 MG) 325 MG/TAB TABLET PO SCH (08:57)
[2019-10-01] MEDS ORDERED: FUROSEMIDE 40 MG/4 ML VIAL IV SCH (09:00)
[2019-10-01] MEDS: HEPARIN SODIUM, PORCINE 5000 UNITS/1 ML VIAL SQ SCH ×2 (09:00→21:00)
--- NOTE | 2019-10-01 09:00 | NUR ---
Heparin dose held due to hgb drop of 10.7 -> 9.3
[2019-10-01] MEDS: HYDROCODONE/APAP 5/325MG 1 EACH TABLET PO PRN ×2 (09:36→21:24)
--- NOTE | 2019-10-01 11:11 | NUR ---
Social service consult requested by wound RN Silvana due to pt having multiple pressure ulcers. Per MD notes, pt is 59 y/o male with PMH of metastatic non-Hodgkin's lymphoma, on hospice care, currently presents from home after caregiver was concerned that she can no longer care for the patient at home. The patient is reportedly been sitting in the same chair for days and urinating on himself. Patient states that he felt worse for the prior 2 weeks including cough, shortness of breath, worsening edema. Patient was brought by EMS to the ED after discussion with the hospice service simply advising going to the ER. There was some concern from EMS regarding the quality of the care hospice was providing, as it did not appear that the patient had received any professional care for some time. SAND CLEANING MACHINE OPERATOR was also informed by Dr. Carlson, this looks like hospice fraud. SAND CLEANING MACHINE OPERATOR contacted pt's Quynh . SAND CLEANING MACHINE OPERATOR introduced self and purpose of the call. Per Quynh, pt was suppose to start receiving hospice services with [facility], however no one from the hospice company came to the house. Quynh is also not doing well and has cancer. SAND CLEANING MACHINE OPERATOR also spoke with pt's caregiver Julian, who confirmed that [facility]. Per Julian, he provides 24/7 care to the pt, however states, it has been overwhelming and difficult lately to care for the pt, due to pt not being able to walk and weighing over 200 lbs. Pt is dependent for all of his ADLS at this time. Pt has a walker, wheelchair and commode at home. JET contacted [facility] and spoke with Maryse. Maryse confirmed that pt is receiving services from them since September 05, 2019. According to Maryse, an GOLD LEAF LABORER goes to the home twice a week and an RN every two weeks. JET informed her that per family, they have not seen anyone from the hospice company at their home. Maryse informed SW, she will have director life insurance contact . JET received a call from Ms Carvalho, director of [facility] stating they have been providing services. JET informed her per family, that is incorrect and no services have been provided. JET filed hospice fraud online with the Office of Milled Rubber Tender with Department of Health and Human Services. [facility] filed APS for neglect.(APS intake ID #[id number]) LUZMA Godfrey and [address] Dr. Mclaughlin have been notified with aforementioned information.
[2019-10-01] MEDS: MORPHINE SULFATE INJ 2 MG/ML DISP.SYRIN IV PRN ×3 (14:17→22:45)
[2019-10-01] MEDS ORDERED: FEE PK DOSING 1 MIN EA MC ONE (19:28)
--- NOTE | 2019-10-01 19:31 | NUR ---
LATHE WINDER Shift Summary Patient remains A/OX4. DNR/DNI status confirmed with patient. Attached to 60L O2 via nasal cannula. SOB/labored breathing noted. SPO2 >95% throughout shift. Tele monitor attached, SR HR 80s w/ x1 episode of bradycardia HR 45. x2 BM, (1 episode of diarrhea), LUE edema, RLE edema. Masterson intact and draining. Feeds self. ARIA midline intact. Patient complains of pain, medicated as ordered. Patient in high fowlers, call light within reach. Urine for nephro studies + wound cx of R heel sent. Wound tx as ordered. Endorsed to ANGUS ZAMORA Addendum: 10/01/19 at 1936 by ROSITA SEVERINO RN 101F temp @beginning of shift (cooling blanket on) -> 98F at end of shift, cooling blanket removed Addendum: 10/01/19 at 1936 by ROSITA SEVERINO RN patient refusing Plaquenil
[2019-10-01 20:01] LABS: APPEARANCE,URINE TURBID (CLEAR); BILIRUBIN,URINE NEGATIVE (NEGATIVE); BLOOD, URINE MODERATE Ery/uL (NEGATIVE); COLOR,URINE YELLOW (YELLOW); KETONES,URINE NEGATIVE (NEGATIVE); LEUKOCYTE ESTERASE ,URINE NEGATIVE (NEGATIVE); NITRITE, URINE NEGATIVE (NEGATIVE); PROTEIN,URINE NEGATIVE (NEGATIVE); UGLUCOSE NEGATIVE (NEGATIVE); UROBILINOGEN,URINE 0.2 EU/dL (0.2)
[2019-10-01 20:11] LABS: CREATININE, URINE 27.5 MG/DL (30.0-125.0); URINE TOTAL PROTEIN 35.1 mg/dL (0-11.9)
[2019-10-01 20:32] LABS: BACTERIA,URINE Few /HPF (None Seen); SQUAMOUS EPITHELIAL CELL,UR Few /HPF (None Seen); URIC ACID CRYSTALS,URINE Moderate /HPF (None Seen); WBC,URINE 0-2 /HPF (0-3)
[2019-10-01] MEDS ORDERED: AZITHROMYCIN 250 MG in IV D5W 250 ML IV SCH (21:00)
[2019-10-01 21:01] LABS: EOSINOPHIL,URINE None Seen
[2019-10-01] MEDS: MUPIROCIN OINT 2% 22 GM TUBE SCH (21:23)
[2019-10-01] MEDS: CEFEPIME 2 GM in IV D5W 100 ML IV SCH (21:23)
[2019-10-01] MEDS: AZITHROMYCIN 250 MG TABLET PO SCH (21:23)
--- NOTE | 2019-10-01 21:42 | NUR ---
RN NOTE HEPARIN HELD DUE TO DROP IN HGB. CLARIFIED WITH WHO AGREES.
[2019-10-02] VITALS (42 sets, daily range): BP systolic 112–148; BP diastolic 56–85
[2019-10-02] MEDS: HYDROCODONE/APAP 5/325MG 1 EACH TABLET PO PRN (02:08)
[2019-10-02] MEDS: MORPHINE SULFATE INJ 2 MG/ML DISP.SYRIN IV PRN ×2 (03:52→11:01)
[2019-10-02 04:45] LABS: BASOPHILS % (AUTO) 0.1 % (0.0-2.0); HEMATOCRIT 27 % (39-51); LYMPHOCYTES # (AUTO) 0.9 /CMM (0.8-4.8); LYMPHOCYTES % (AUTO) 7.4 % (20.0-44.0); MEAN CORPUSCULAR HGB CONC 33 g/dl (31.0-36.0); MEAN CORPUSCULAR VOLUME 78 fL (80-96); MONOCYTES # (AUTO) 1.4 /CMM (0.1-1.30); MONOCYTES % (AUTO) 11.7 % (2.0-12.0); NEUTROPHILS # (AUTO) 9.3 /CMM (1.8-8.9); NEUTROPHILS % (AUTO) 80.8 % (43.0-81.0); PLATELET COUNT (AUTO) 301 /CMM (150-450); RED BLOOD CELL COUNT(AUTO) 3.46 MIL/uL (4.5-6.0); WHITE BLOOD COUNT (AUTO) 11.6 K/uL (4.3-11.0)
[2019-10-02 04:56] LABS: CREATINE KINASE, TOTAL 683 U/L (39-308)
[2019-10-02 04:57] LABS: ALANINE AMINOTRANSFERASE 27 U/L (12-78); ALBUMIN 1.9 g/dL (3.4-5.0); ALKALINE PHOSPHATASE 60 U/L (46-116); ASPARTATE AMINOTRANSFERASE 48 U/L (15-37); BILIRUBIN,TOTAL 0.5 mg/dL (0.2-1.0); CARBON DIOXIDE 28 mmol/L (21-32); CHLORIDE 99 mmol/L (98-107); GLUCOSE 124 mg/dL (74-106); MAGNESIUM 1.9 mg/dL (1.8-2.4); PHOSPHORUS 3.9 mg/dL (2.5-4.9); POTASSIUM 3.7 mmol/L (3.5-5.1); SODIUM SERUM 133 mmol/L (136-145); TOTAL PROTEIN, SERUM 8.4 g/dL (6.4-8.2); UREA NITROGEN, BLOOD 60 mg/dL (7-18)
--- NOTE | 2019-10-02 08:00 | NUR ---
ICU OPENING NOTES RECEIVED PT IN BED. PT IS ALERT & ORIENTED X 4. PT SR HR 94.RT IS ON BED SITE. PT IS ON HIGH FLOW 60 L/95 % SATURATION. PT HAS MULTIPLE WOUNDS AND EDEMA. PT HAS PALMER CATHETER. PT HAS RIGHT UPPER MIDLINE FLUSHING WELL AND INTACT. PT HAS Hgb 9 SO
--- NOTE | 2019-10-02 08:01 | NUR ---
REMOTE MEDICAL CODER OPENING NOTES PT HAS SACRAL STIT AND RIGHT KNEE AND RIGHT HEEL. SEE WOUND TREATMENT.PT BED IN LOWEST POSITION . CALL LIGHT WITHIN REACH. WILL MONITOR. =
[2019-10-02 08:07] LABS: *SPE A/G RATIO 0.4 (0.7-1.7); *SPE ALBUMIN 2.1 g/dL (2.9-4.4); *SPE ALPHA-1-GLOBULIN 0.4 g/dL (0.0-0.4); *SPE ALPHA-2-GLOBULIN 1.6 g/dL (0.4-1.0); *SPE GLOBULIN, TOTAL 5.9 g/dL (2.2-3.9); *SPE M-SPIKE 1.6 g/dL (Not Observed); *SPEGAMMA GLOBULIN 2.9 g/dL (0.4-1.8)
--- NOTE | 2019-10-02 08:33 | NUR ---
ramyi rn note held heparin due to hgb is 9
[2019-10-02] MEDS: CLOTRIMAZOLE 1% 15 GM TUBE TP SCH (08:36)
[2019-10-02] MEDS: HYDROCORTISONE SOD SUCCINATE 100 MG/2 ML VIAL IV SCH ×3 (08:37→16:30)
[2019-10-02] MEDS: FERROUS SULFATE (325 MG) 325 MG/TAB TABLET PO SCH (08:37)
[2019-10-02] MEDS: HEPARIN SODIUM, PORCINE 5000 UNITS/1 ML VIAL SQ SCH ×2 (08:38→21:00)
[2019-10-02] MEDS: MUPIROCIN OINT 2% 22 GM TUBE SCH ×2 (08:39→21:58)
[2019-10-02] MEDS: ACETAMINOPHEN 325 MG TABLET PO PRN (08:42)
[2019-10-02] MEDS ORDERED: HYDROXYCHLOROQUINE 200 MG TABLET PO SCH (09:00)
[2019-10-02] MEDS: CEFEPIME 2 GM in IV D5W 100 ML IV SCH ×2 (09:17→21:55)
--- NOTE | 2019-10-02 09:31 | NUR ---
RT NOTES fio2 titrate down to 80% pt. desaturate 85% to 87%. placed back on 95% fio2 Addendum: 10/02/19 at 0932 by GALINA GALLO RT Amended: Links added.
--- NOTE | 2019-10-02 11:07 | NUR ---
PREPRESS SUPERVISOR NOTES RECEIVED A CALL FROM MARCO A SOTOMAYOR FOR COVID NEGATIVE RESULT.
--- NOTE | 2019-10-02 13:54 | NUR ---
BOILER CONTROL ROOM OPERATOR NOTES PATIENT HAD SPO2 69% WHILE CHANGING THE LINENS. RT WAS INFORMED AND PUT PT HEAD ON 90 DEGREE. AFTER 15-20 MINUTES PATIENT WAS ABLE TO BREATH EASILY AND SATURATION RAISED TO 90%
[2019-10-02] MEDS ORDERED: VANCOMYCIN 1.25 GM in IV D5W 250 ML IV SCH (14:00)
--- NOTE | 2019-10-02 15:15 | NUR ---
GROUND HOST/HOSTESS NOTES PATIENT IS DESATURATING IN 70`S . ABG STAT ORDERED.
--- NOTE | 2019-10-02 15:30 | NUR ---
ICU EN NOTES CALLED EPIC VIDEO PRODUCTION INTERN NEGRETTE FOR THE HEPARIN ADMINISTRATION. VIDEO PRODUCTION INTERN NEGRETTE AWARE OF HELD HEPARIN. FOLLOW UP WITH WRAPPER OPERATOR DR FOR HEPARIN ADMINISTRATION.
[2019-10-02 15:42] LABS: ABG BASE EXCESS 0.9 mmol/L; ABG OXYGEN SATURATION 83.2 % (92.0-98.5); ABG PCO2 65.1 mmHg (35.0-45.0); ABG PH 7.266 (7.350-7.450); AaDO2 559.4 mmHg; COHb 0.3 % (0.5-1.5); MetHb 0.2 % (0.0-1.5); O2Hb 82.8 % (94.0-97.0); SITE, ABG Right Radial; VENT MODE, BG high flow 60 LPM/ 95% fio
--- NOTE | 2019-10-02 16:00 | NUR ---
@ 1600 pt placed into bipap due to 40 respiration and 78 spo2 on 95% o2 high flow. bipap settings below set as order: ipap 18 epap 8 rate 16 fio2 100% bipap plugged into red outlet with alarms on and functioning. kenia @ bedside. Addendum: 10/02/19 at 1609 by GALINA GALLO RT Amended: Links added.
--- NOTE | 2019-10-02 16:02 | NUR ---
TRAWL NET MAKER NOTES PATIENT PLACED ON BIPAP IPAP 18/ EPAP8/ RATE16/[id number]%.
--- NOTE | 2019-10-02 16:21 | NUR ---
DEADENER NOTES CALLED ARI, THE , AND UPDATED HER ABOUT HIS CONDITION.
--- NOTE | 2019-10-02 17:51 | NUR ---
bipap settings below changed per dr. graves: ipap 25 epap 10 rn notified on changes. Addendum: 10/02/19 at 1752 by GALINA GALLO RT Amended: Links added.
--- NOTE | 2019-10-02 18:55 | NUR ---
STAPLE SHEAR OPERATOR NOTES CLOSING PATIENT IN BED ON BIPAP (PER DR FOLEY`S ORDER). A/OX4 LETHARGIC. HE DESATURATED EARLY TODAY, BUT SPO2 INCREASED WHEN PIBAB IMPLEMENTED. ALL NEEDS ATTENDED. WOUND CARE DONE. NEGATIVE FOR COVID19. POSITIVE FOR MRSA. IV SITE PATENT ON TKO 5ML/HR. PALMER CATHETER EMPTIED AND PATIENT HAD A GOOD OUTPUT OF URINE TODAY 2150 ML. CALL LIGHT WITHIN REACH, BED AT THE LOWEST POSITION , LOCKED, REPORT GIVEN TO BPO SPECIALIST NURSE FOR NILES.
--- NOTE | 2019-10-02 19:00 | NUR ---
Received patient drowsy but arousable,not talking ,but responds to verbal stimuli with good eye contact,very weak, not moving lower extremities, able to lift and move both arms but weak.On BIPAP 25/10, rate=16, FIO2 100 %, breathing very labored and tachypneic RR=40-50/min.Maintained on high duffy's position,Aspiration Precaution observed,NPO while on BIPAP.MIDLINE via ARIA.Comfort care done,needs attended.Patient is DNR/DNI.On contact isolation for nasal MRSA.
--- NOTE | 2019-10-02 19:40 | NUR ---
PT RCVD ON BIPAP 25/10, RATE 16, FIO2 100%. BIPAP PLUGGED INTO RED OUTLET. ALARMS ON AND AUDIBLE. WILL CONTINUE TO MONITOR THE PT T/O SHIFT.
[2019-10-02] MEDS: AZITHROMYCIN 250 MG TABLET PO SCH (20:00)
[2019-10-03] VITALS (37 sets, daily range): BP systolic 90–143; BP diastolic 42–74
--- NOTE | 2019-10-03 | NUR ---
MORE LETHARGIC,NON VERBAL,DOES NOT FOLLOW COMMANDS.STILL ON BIPAP 100 FIO2,TACYPNEIC ,VERY LABORED BREATHING BUT SATURATING IN THE 90'S STILL.MAINTAINED ON HIGH BARNES'S POSITION,ASPIRATION PRECAUTION MAINTAINED.KEEP NPO DUE TO ALTERED NEURO STATUS.
[2019-10-03] MEDS ORDERED: VANCOMYCIN 1.25 GM in IV D5W 250 ML IV SCH (02:00)
--- NOTE | 2019-10-03 04:00 | NUR ---
AM CARE DONE,DESATURATED IN THE LOW 80'S WHILE ON FLAT POSITION.PLACE ON [employer] MATTRESS.
[2019-10-03 04:34] LABS: BASOPHILS % (AUTO) 0.2 % (0.0-2.0); HEMATOCRIT 31 % (39-51); HEMOGLOBIN 10.1 g/dL (13.5-17.5); LYMPHOCYTES # (AUTO) 0.8 /CMM (0.8-4.8); LYMPHOCYTES % (AUTO) 4.9 % (20.0-44.0); MEAN CORPUSCULAR HGB CONC 33 g/dl (31.0-36.0); MEAN CORPUSCULAR VOLUME 80 fL (80-96); MONOCYTES # (AUTO) 2.7 /CMM (0.1-1.30); MONOCYTES % (AUTO) 15.7 % (2.0-12.0); NEUTROPHILS # (AUTO) 13.4 /CMM (1.8-8.9); NEUTROPHILS % (AUTO) 79.2 % (43.0-81.0); PLATELET COUNT (AUTO) 403 /CMM (150-450); RED BLOOD CELL COUNT(AUTO) 3.89 MIL/uL (4.5-6.0); WHITE BLOOD COUNT (AUTO) 16.9 K/uL (4.3-11.0)
[2019-10-03 04:59] LABS: ALBUMIN 2.2 g/dL (3.4-5.0); BILIRUBIN,TOTAL 0.4 mg/dL (0.2-1.0); CALCIUM, SERUM 8.7 mg/dL (8.5-10.1); CREATININE 1.1 mg/dL (0.6-1.3); MAGNESIUM 1.8 mg/dL (1.8-2.4); POTASSIUM 5.1 mmol/L (3.5-5.1); TOTAL PROTEIN, SERUM 9.3 g/dL (6.4-8.2)
[2019-10-03 05:58] LABS: LYMPHOCYTES % (MANUAL) 4 % (16-48); MONOCYTES % (MANUAL) 10 % (0-11.0); NEUTROPHILS % (MANUAL) 86 (42-76)
--- NOTE | 2019-10-03 06:00 | NUR ---
NO CHANGED IN STATUS,OBTUNDED,STILL TACHYPNEIC WITH LABORED BREATHING ON BIPAP 100 % FIO2.CONTINUE COMFORT CARE.
--- NOTE | 2019-10-03 07:00 | NUR ---
REPORT GIVEN TO BRANDON ZAMORA.
--- NOTE | 2019-10-03 07:15 | NUR ---
RN OPENING NOTE: Received patient in bed and asleep. Tele monitoring showing sinus rhythm in the 90s with A-fib noted in patient hx. On BIPAP at prescribed settings and being tolerated well. No SOB and not in respiratory distress. No pain noted on patient. IV sites clean, dry, patent and intact. Masterson catheter draining yellow urine. Call light in reach. Bed locked, low and at semi-duffy's position. Side rails up x3. Safety ensured and observed. Will continue to monitor.
[2019-10-03 08:43] LABS: ABG BASE EXCESS 1.1 mmol/L; ABG OXYGEN SATURATION 98.1 % (92.0-98.5); ABG PCO2 58.2 mmHg (35.0-45.0); ABG PH 7.305 (7.350-7.450); ABG PO2 103.1 mmHg (75.0-100.0); AaDO2 551.7 mmHg; COHb 0.4 % (0.5-1.5); MetHb 0.1 % (0.0-1.5); O2Hb 97.6 % (94.0-97.0); SITE, ABG Left Radial; VENT MODE, BG S/T 25/10 RR16 100%
[2019-10-03] MEDS: CEFEPIME 2 GM in IV D5W 100 ML IV SCH (08:57)
[2019-10-03] MEDS: MUPIROCIN OINT 2% 22 GM TUBE SCH ×2 (08:58→21:21)
[2019-10-03] MEDS: CLOTRIMAZOLE 1% 15 GM TUBE TP SCH (08:59)
[2019-10-03] MEDS: HYDROCORTISONE SOD SUCCINATE 100 MG/2 ML VIAL IV SCH ×2 (09:00→16:33)
[2019-10-03] MEDS: HEPARIN SODIUM, PORCINE 5000 UNITS/1 ML VIAL SQ SCH ×2 (09:01→21:01)
--- NOTE | 2019-10-03 10:37 | NUR ---
RN note: Latest ABG results relayed to Dr. Murray with no new orders.
[2019-10-03] MEDS: SOD FERRIC GLUC 125 MG in IV NS 0.9% 100 ML IV SCH (14:00)
[2019-10-03] MEDS: ACETAMINOPHEN 650 MG/SUPP.RECT RC PRN (16:33)
--- NOTE | 2019-10-03 19:03 | NUR ---
RN closing NOTE: Patient remains in bed and asleep. Tele monitoring showing sinus tachycardia in the 110s. On BIPAP at prescribed settings and being tolerated well. No SOB and not in respiratory distress. No pain noted on patient. IV sites clean, dry, patent and intact. Masterson catheter draining yellow urine. Awaiting scheduled Vancomycin dose to be delivered by pharmacy. Call light in reach. Bed locked, low and at semi-duffy's position. Side rails up x3. Safety ensured and observed. Due medications given. Wound treatment done. Will endorse to oncoming shift for NILES.
[2019-10-03] MEDS: VANCOMYCIN 1.25 GM in IV D5W 250 ML IV SCH (19:48)
--- NOTE | 2019-10-03 20:19 | NUR ---
agricultural technical officer. initial assessment. received the pt rest on the bed. pt is very lethargic. does not follow commands. bipap on. settings 25/10,rate is 16, fio2 100%, sat is 94%. pt is npo. fc patent. urine draining. cardiac cath lab technologist showing s tach. hob elevated. iv rt upper arm mid line. tko running. temperature 100. will continue to monitor vitals.
[2019-10-03] MEDS: MEROPENEM 1 G in IV NS 0.9% 100 ML IV SCH (21:00)
[2019-10-04] VITALS (80 sets, daily range): BP systolic 96–132; BP diastolic 58–77
--- NOTE | 2019-10-04 03:26 | NUR ---
HIV PREVENTION SPECIALIST. AM CARE, ORAL CARE, BED BATH GIVEN. LINEN CHANGED. REMAINING SAME BIPAP SETTING ON. SAT 95%, PT IS TACHYPNEIC.FC PATENT, URINE DRAINING. HOB ELEVATED, NPO. PT IS VERY LETHARGIC.. PT IS UNSTABLE. WILL CONTINUE TO MONITOR VITALS.
[2019-10-04] MEDS: ACETAMINOPHEN 650 MG/SUPP.RECT RC PRN (04:02)
[2019-10-04 05:05] LABS: HEMATOCRIT 30 % (39-51); HEMOGLOBIN 9.5 g/dL (13.5-17.5); LYMPHOCYTES % (AUTO) 6.6 % (20.0-44.0); MEAN CORPUSCULAR HGB CONC 32 g/dl (31.0-36.0); MEAN CORPUSCULAR VOLUME 79 fL (80-96); MONOCYTES # (AUTO) 1.9 /CMM (0.1-1.30); NEUTROPHILS # (AUTO) 12.7 /CMM (1.8-8.9); NEUTROPHILS % (AUTO) 81.4 % (43.0-81.0); PLATELET COUNT (AUTO) 405 /CMM (150-450); RED BLOOD CELL COUNT(AUTO) 3.72 MIL/uL (4.5-6.0); WHITE BLOOD COUNT (AUTO) 15.6 K/uL (4.3-11.0)
--- NOTE | 2019-10-04 05:16 | NUR ---
horticultural services supervisor. pt has fever 101, tylenol supp given per ordered
[2019-10-04 05:18] LABS: CALCIUM, SERUM 8.3 mg/dL (8.5-10.1); CREATININE 0.9 mg/dL (0.6-1.3); POTASSIUM 4.7 mmol/L (3.5-5.1)
[2019-10-04] MEDS: VANCOMYCIN 1.25 GM in IV D5W 250 ML IV SCH ×2 (05:45→17:19)
[2019-10-04 05:49] LABS: BAND % (MANUAL) 2 % (0.0-5.0); LYMPHOCYTES % (MANUAL) 5 % (16-48); MONOCYTES % (MANUAL) 13 % (0-11.0); NEUTROPHILS % (MANUAL) 80 (42-76)
[2019-10-04 07:25] LABS: ABG BASE EXCESS 6.3 mmol/L; ABG OXYGEN SATURATION 97.8 % (92.0-98.5); ABG PCO2 64.1 mmHg (35.0-45.0); ABG PH 7.337 (7.350-7.450); ABG PO2 103.6 mmHg (75.0-100.0); AaDO2 545.3 mmHg; COHb 0.1 % (0.5-1.5); O2Hb 97.7 % (94.0-97.0); SITE, ABG Left Radial; VENT MODE, BG ST 25/10 100%
--- NOTE | 2019-10-04 07:30 | NUR ---
RN NOTES RECEIVED PATIENT ON BIPAP, SETTINGS FOLLOWS: 25/10, RATE OF 16 AND FI02 AT 100%. PATIENT SATING FINE AT 99% ON THE MONITOR BUT IS NOTED WITH LABORED BREATHING, TACHYPNEIC RATE RATE ON THE HIGH 30 TO 40S. PATIET ABLE TO ANSWER YES/NO QUESTION BUT NOT CONSISTENTLY ABLE TO ANSWER. SINUS TACHY ON THE MONITOR WITH HR ON THE 108 NOTED. PATIENT DNR/DNI PER PERSONAL REQUEST ON ADMISSION. PATIENT DENIES PAIN ON ASSESSMENT. BILATERAL NON PITTING EDEMA NOTED ON THE HANDS. IV ACCESS ON THE ARIA IN PLACE, WITH ONGOING NS AT TKO. HOD ELEVATED. SRX2 RAISED. BED IN LOW AND LOCKED POSITIONED. WILL CONTINUE TO MONITOR PATIENT ACCORDINGLY
--- NOTE | 2019-10-04 08:00 | NUR ---
RN NOTES SEEN AND EXAMINED NP. RICHARD WALKERO ORDERS AT THIS TIME
[2019-10-04] MEDS: MEROPENEM 1 G in IV NS 0.9% 100 ML IV SCH ×2 (08:30→20:04)
[2019-10-04] MEDS: HYDROCORTISONE SOD SUCCINATE 100 MG/2 ML VIAL IV SCH ×2 (08:30→17:18)
[2019-10-04] MEDS: HEPARIN SODIUM, PORCINE 5000 UNITS/1 ML VIAL SQ SCH ×2 (08:31→20:05)
[2019-10-04] MEDS: CLOTRIMAZOLE 1% 15 GM TUBE TP SCH (08:32)
[2019-10-04] MEDS: MUPIROCIN OINT 2% 22 GM TUBE SCH ×2 (08:32→20:05)
--- NOTE | 2019-10-04 12:07 | NUR ---
RN NOTES DR. VEGA WITH ORDER TO OBTAIN PATHOLOGY REPORT FROM [facility]. ORDER ACKNOWLEDGED AND CARRIED OUT. CALLED ARI (COMMON LAW PARTNER/NEXT OF KIN) TO OBTAIN CONSENT FOR THE RELEASE OF INFORMATION. CONSENT VERIFIED WITH NOAH BEST 9568: FAXED PAPERS WORKS TO [facility] AT #[phone]
[2019-10-04] MEDS: SOD FERRIC GLUC 125 MG in IV NS 0.9% 100 ML IV SCH (14:59)
[2019-10-04] MEDS ORDERED: MICAFUNGIN SODIUM 100 MG in IV NS 0.9% 100 ML IV SCH (16:00)
--- NOTE | 2019-10-04 16:00 | NUR ---
RN NOTES PAGED SHOAIB PIERCE FOR PAIN MEDICATION STRONGER THAN TYLENOL BUT NO ORDERS WERE MADE DUE PATIENT'S STATE AT THIS TIME
[2019-10-04] MEDS ORDERED: IV NS 0.9% 250 ML IV PRN (18:30)
[2019-10-04] MEDS: MICAFUNGIN SODIUM 100 MG in IV NS 0.9% 100 ML IV SCH (18:58)
--- NOTE | 2019-10-04 19:00 | NUR ---
RN NOTES ENDORSED PATIENT FOR CONTINUITY OF CARE. STILL ON THE BIPAP. SATING FINE AT 95% BUT IS STILL TACHYPNEIC. PATIENT IS NOTED TO BE MORE REACTIVE OVER THE LAST HOURS OF THE SHIFT. NO INDICATION OF ACTIVE BLEEDING NOTED. NO INDICATION OF PAIN THE PATIENT IS NOTED CALM IN BED. ALL CHANGES ADDRESSED. ALL NURSING NEEDS ATTENDED AND MET. SAFETY MEASURES IN PLACE. CALL LIGHT WITHIN REACH.
--- NOTE | 2019-10-04 19:05 | NUR ---
ENGLISH AS A SECOND LANGUAGE TEACHER NOTE RECEIVED PATIENT IN BED RESTING WITH HOB ELEVATED. BREATHING IS EVEN AND NON LABORED, NO SOB NOTED AT THIS TIME. ON BIPAP AND TOLERATING WELL. ON ISOLATION FOR MRSA OF NARES. ON BED REST. CODE STATUS IS DNR, DNI. PATIENT IS ABLE TO OPEN EYES, NON VERBAL. ON PALMER. URINE IS CLEAR AND YELLOW IN COLOR. ABDOMEN IS SOFT AND NON DISTENDED. IV SITE ON ARIA IS CLEAN, DRY, AND PATENT. IN NO APPARENT DISTRESS NOTED AT THIS TIME. BED IS LOWERED AND LOCKED FOR SAFETY. WILL CONTINUE TO MONITOR.
--- NOTE | 2019-10-04 21:31 | NUR ---
RECEIVED PT ON BIPAP ON NOTED SETTINGS. PT TOLERATING SETTINGS. MEPILEX AROUND THE NOSE. ALARMS SET AND AUDIBLE. CONTINUE TO MONITOR. Addendum: 10/04/19 at 2134 by ESTER LAWS RT Amended: Links added.
[2019-10-05] VITALS (82 sets, daily range): BP systolic 84–127; BP diastolic 46–86
--- NOTE | 2019-10-05 03:00 | NUR ---
TAP GRINDER NOTE PATIENT TOLERATED BED BATH WELL AT THIS TIME. NO APPARENT DISTRESS NOTED. WILL CONTINUE TO MONITOR.
[2019-10-05 04:31] LABS: BASOPHILS % (AUTO) 0.1 % (0.0-2.0); HEMATOCRIT 27 % (39-51); HEMOGLOBIN 8.5 g/dL (13.5-17.5); LYMPHOCYTES # (AUTO) 0.9 /CMM (0.8-4.8); LYMPHOCYTES % (AUTO) 7.1 % (20.0-44.0); MEAN CORPUSCULAR HGB CONC 31 g/dl (31.0-36.0); MEAN CORPUSCULAR VOLUME 79 fL (80-96); MONOCYTES # (AUTO) 1.2 /CMM (0.1-1.30); MONOCYTES % (AUTO) 8.9 % (2.0-12.0); NEUTROPHILS # (AUTO) 11.1 /CMM (1.8-8.9); NEUTROPHILS % (AUTO) 83.9 % (43.0-81.0); PLATELET COUNT (AUTO) 338 /CMM (150-450); RED BLOOD CELL COUNT(AUTO) 3.43 MIL/uL (4.5-6.0); WHITE BLOOD COUNT (AUTO) 13.2 K/uL (4.3-11.0)
[2019-10-05 04:38] LABS: CALCIUM, SERUM 8.2 mg/dL (8.5-10.1); POTASSIUM 4.2 mmol/L (3.5-5.1)
[2019-10-05] MEDS: VANCOMYCIN 1.25 GM in IV D5W 250 ML IV SCH (05:10)
--- NOTE | 2019-10-05 06:51 | NUR ---
PATROL JUDGE NOTE PATIENT REMAINED STABLE THROUGHOUT THE NIGHT. SIGNIFICANT CHANGES NOTED. PATIENT KEPT CLEAN, DRY, AND COMFORTABLE. WILL ENDORSE TO AM SHIFT RN FOR CONTINUATION OF CARE.
--- NOTE | 2019-10-05 07:30 | NUR ---
RN NOTES RECEIVED PATIENT BACK FROM THE DIRECTOR HEMATOLOGY NURSE, PATIENT STILL ON BIPAP. SATING FINE AT 95% AT THIS TIME, PATIENT'S RR AT 23BPM. NO INDICATION OF PAIN, CALM IN BED. RESTRAINTS RELEASE FROM THE R WRIST, SKIN INTACT ON THE SITE, NO DISCOLORATION NOTED. WILL CONTINUE TO MONITOR PATIENT ACCORDINGLY
--- NOTE | 2019-10-05 08:30 | NUR ---
RN NOTES PATIENT PLACED ON HIGH FLOW OXYGEN WITH 90% FI02 AT 60LPM, WILL CONTINUE TO MONITOR.
[2019-10-05] MEDS: MEROPENEM 1 G in IV NS 0.9% 100 ML IV SCH ×2 (08:57→20:27)
[2019-10-05] MEDS: HYDROCORTISONE SOD SUCCINATE 100 MG/2 ML VIAL IV SCH ×2 (08:57→16:56)
[2019-10-05] MEDS: MUPIROCIN OINT 2% 22 GM TUBE SCH ×2 (08:57→20:31)
[2019-10-05] MEDS: CLOTRIMAZOLE 1% 15 GM TUBE TP SCH (08:58)
[2019-10-05] MEDS: HEPARIN SODIUM, PORCINE 5000 UNITS/1 ML VIAL SQ SCH ×2 (08:59→20:30)
--- NOTE | 2019-10-05 09:00 | NUR ---
RN NOTES PATIENT AWAKE, ALERT AND ORIENTEDX2, MORE RESPONSIVE COMPARED TO YESTERDAY. ABLE TO SWALLOW SOME SPOONS OF ICE CHIP AND DRINK WATER USING A STRAW WITH EASE. WILL OFFER MORE IN A WHILE
--- NOTE | 2019-10-05 10:00 | NUR ---
RN NOTES MT INFORMED ME THAT PATIENT'S BLOOD PRESSURE AND SATURATIONS ARE BOTH ON THE LOW SIDE, AT BEDSIDE IS RT MADIHA. PER MADIHA PATIENT REMOVED HIS HIGH FLOW NASAL PRONG/ CANNULA. PATIENT WAS OBSERVED BUT SATS ARE NOT HOLD UP, PATEINT IS THEN PLACED BACK TO BIPAP. BLOOD PRESSURES WAS WITHIN NORMAL RANGE ON RECHECK Addendum: 10/05/19 at 1714 by SRINI LOPEZ RN RIGHT HAND RESTRAINTS PLACED BACK
[2019-10-05] MEDS: IV D5W 1,000 ML IV SCH (13:33)
[2019-10-05] MEDS: SOD FERRIC GLUC 125 MG in IV NS 0.9% 100 ML IV SCH (14:58)
[2019-10-05] MEDS: MICAFUNGIN SODIUM 100 MG in IV NS 0.9% 100 ML IV SCH (16:59)
--- NOTE | 2019-10-05 17:46 | NUR ---
RT PATIENT REMAINS ON BIPAP. WAS UNABLE TO VERA BEING OFF WITH NOTED DESATURATION AND DISTRESS. Addendum: 10/05/19 at 1805 by MADIHA RAYMUNDO RT Amended: Links added.
--- NOTE | 2019-10-05 21:16 | NUR ---
CAUSTIC PREPARER NOTES RECEIVED CALL FROM DR VEGA, UPDATED REGARDING LATEST VITALS AND CURRENT CONDITION. DR VEGA ASKING IF RECORDS FROM [facility] HAVE BEEN RECEIVED. IN CHART NOTED REQUEST TO [facility] POLLACK FOR RECORDS, BUT NONE YET LOCATED IN THE CHART. MADE AWARE, NO NEW ORDERS AT THIS TIME.
--- NOTE | 2019-10-05 22:27 | NUR ---
RECEIVED PT ON BIPAP ON NOTED SETTINGS. ALARMS SET AND AUDIBLE. CONTINUE TO MONITOR. Addendum: 10/05/19 at 2227 by ESTER LAWS RT Amended: Links added.
[2019-10-06] VITALS (24 sets, daily range): BP systolic 91–120; BP diastolic 54–64
[2019-10-06 04:14] LABS: BASOPHILS # (AUTO) 0.1 /CMM (0.0-0.2); BASOPHILS % (AUTO) 0.6 % (0.0-2.0); EOSINOPHILS % (AUTO) 0.2 % (0.0-6.0); HEMATOCRIT 27 % (39-51); HEMOGLOBIN 8.5 g/dL (13.5-17.5); LYMPHOCYTES # (AUTO) 1.3 /CMM (0.8-4.8); LYMPHOCYTES % (AUTO) 6.5 % (20.0-44.0); MEAN CORPUSCULAR HGB CONC 32 g/dl (31.0-36.0); MEAN CORPUSCULAR VOLUME 81 fL (80-96); MONOCYTES % (AUTO) 4.9 % (2.0-12.0); NEUTROPHILS # (AUTO) 17.9 /CMM (1.8-8.9); NEUTROPHILS % (AUTO) 87.8 % (43.0-81.0); PLATELET COUNT (AUTO) 403 /CMM (150-450); RED BLOOD CELL COUNT(AUTO) 3.29 MIL/uL (4.5-6.0); WHITE BLOOD COUNT (AUTO) 20.3 K/uL (4.3-11.0)
[2019-10-06 04:24] LABS: CALCIUM, SERUM 8.2 mg/dL (8.5-10.1); CREATININE 0.9 mg/dL (0.6-1.3); POTASSIUM 4.1 mmol/L (3.5-5.1)
--- NOTE | 2019-10-06 07:10 | NUR ---
ICU/CLOSING PATIENT CONTINUES ON BIPAP WITH FIO2 AT 80% SATURATING AT 98%. NO SIGN OF SOB OR ANY DISTRESS. PATIENT IS ALERT AND FOLLOWS COMMANDS WITH HEAD MOVEMENT. LIJ-TLC PATENT AND RUNNING WITH D5W @ 50CC/HR. FC DRAINING VIA GRAVITY WITH CLOUDY YELLOW OUTPUT. PICTURES TAKE OF WOUNDS AND ALL WOUND CARE ADDRESSED. ALL SAFETY PRECUATIONS APPLIED. ENDORSED PATIENT TO MORNING SHIFT NURSE.
--- NOTE | 2019-10-06 07:30 | NUR ---
RT Pt received on BiPAP with noted settings. Pt is awake and tracks with eyes. No SOB or respiratory distress noted. Addendum: 10/06/19 at 1602 by GREG LOONEY RT Amended: Links added.
[2019-10-06] MEDS: HEPARIN SODIUM, PORCINE 5000 UNITS/1 ML VIAL SQ SCH ×2 (07:42→20:28)
[2019-10-06] MEDS: HYDROCORTISONE SOD SUCCINATE 100 MG/2 ML VIAL IV SCH ×2 (07:43→18:10)
[2019-10-06] MEDS: IV D5W 1,000 ML IV SCH ×2 (07:43→23:01)
[2019-10-06] MEDS: MUPIROCIN OINT 2% 22 GM TUBE SCH ×2 (07:44→21:05)
[2019-10-06] MEDS: VANCOMYCIN 1 GM in IV D5W 250 ML IV SCH ×2 (07:44→20:00)
[2019-10-06] MEDS: CLOTRIMAZOLE 1% 15 GM TUBE TP SCH (07:44)
--- NOTE | 2019-10-06 08:53 | NUR ---
Per Dr. Murray order, try high flow cannula. Patient placed on 60L + 100% FiO2. Patient appears unable to tolerate: SPO2 80%, accessory muscle use. Placed back on bipap, SPO2 stabilizing. Will continue to closely monitor
[2019-10-06] MEDS ORDERED: ALBUTEROL FS 2.5 MG/0.5 ML VIAL.NEB NEB ONE (09:38)
[2019-10-06] MEDS: MEROPENEM 1 G in IV NS 0.9% 100 ML IV SCH ×2 (09:39→21:04)
--- NOTE | 2019-10-06 09:43 | NUR ---
RT Pt was unable to tolerate high flow nasal cannula and became hypoxic with increase WOB. Pt was placed back on BiPAP per Dr. Murray verbal orders with BiPAP setting changes. Pt was unable to tolerate new settings and was switched back to original settings and 1 hour continuous Albuterol tx was given. Pt respiratory condition seems to be more improved at this time. Will continue to monitor. Addendum: 10/06/19 at 1602 by GREG LOONEY RT Amended: Links added.
--- NOTE | 2019-10-06 11:00 | NUR ---
RT Pt switched to large total face mask due to noticeable DTI on bridge of nose and left cheek. Addendum: 10/06/19 at 1602 by GREG LOONEY RT Amended: Links added.
[2019-10-06 11:36] LABS: MetHb 0.3 % (0.0-1.5)
[2019-10-06] MEDS: IPRATROPIUM NEB FS 0.5 MG/2.5 ML AMPUL.NEB NEB SCH ×4 (12:44→23:27)
[2019-10-06] MEDS: ALBUTEROL HALF STRENGTH 1.25 MG/3 ML VIAL.NEB NEB SCH ×4 (12:44→23:27)
--- NOTE | 2019-10-06 12:45 | NUR ---
RT HHN tx skipped at this time, too close from last given tx.
[2019-10-06 13:04] LABS: ABG BASE EXCESS 1.6 mmol/L; ABG OXYGEN SATURATION 89.8 % (92.0-98.5); ABG PCO2 77.1 mmHg (35.0-45.0); ABG PO2 61.5 mmHg (75.0-100.0); COHb 0.9 % (0.5-1.5); O2Hb 88.7 % (94.0-97.0); SITE, ABG Right Radial; VENT MODE, BG NC 5 L
--- NOTE | 2019-10-06 14:30 | NUR ---
[facility] pathology report faxed to Dr. Rosario
[2019-10-06] MEDS: SOD FERRIC GLUC 125 MG in IV NS 0.9% 100 ML IV SCH (14:40)
[2019-10-06] MEDS: MICAFUNGIN SODIUM 100 MG in IV NS 0.9% 100 ML IV SCH (18:10)
--- NOTE | 2019-10-06 18:40 | NUR ---
ICU Shift Summary Patient is awake with open eyes, able to follow command, mouth words and nod appropriately to questions. Unable to assess orientation due to bipap. Settings = 25/10, rate 16, FiO2 70%, SPO2 92%. Tele monitor attached, SR/ST HR up to 130 during respiratory distress earlier this am (see notes). Masterson draining to gravity. Bowel movement noted to be black+liquid (patient on iron). Wound care completed. R wrist restraint on. ARIA midline intact infusing D5W @75mL/hr.
--- NOTE | 2019-10-06 19:30 | NUR ---
BOTTOM LOADER NOTES RECEIVED PATIENT IN BED AWAKE OPENS HIS EYES. BREATHING NORMAL NO SOB NOTED. RESPIRATION EVEN NON LABORED. SATURATING BETWEEN 88%,TO 92%. TELE MONITOR READING SR IN 90'S. PATIENT IS CURRENTLY NPO STATUS, IV SITE ARIA MIDLINE D5W RUNNING AT 75MLS/HR RUNNING WELL. F/C INTACT PATENT URINE DARNING TO GRAVITY. RT HAND SOFT RESTRAIN IN PLACE FOR SAFETY RELEASED AND CHECKED FOR CIRCULATING AND PULSE. ALL SAFETY MEASURES IN PLACE, SIDE RAILS UP X2. BED IN LOW AND LOCKED POSITION. CALL LIGHT WITHIN REACH. WILL CONT TO MONITOR.
[2019-10-07] VITALS (24 sets, daily range): BP systolic 84–130; BP diastolic 43–74
[2019-10-07] MEDS: IPRATROPIUM NEB FS 0.5 MG/2.5 ML AMPUL.NEB NEB SCH ×6 (03:04→23:30)
[2019-10-07] MEDS: ALBUTEROL HALF STRENGTH 1.25 MG/3 ML VIAL.NEB NEB SCH ×6 (03:05→23:30)
--- NOTE | 2019-10-07 04:00 | NUR ---
BED BATH RENDERED PATIENT TOLERATED WELL, WOUND TREATMENT DONE ORDERED.
[2019-10-07 04:26] LABS: CALCIUM, SERUM 8.5 mg/dL (8.5-10.1); CREATININE 0.8 mg/dL (0.6-1.3); POTASSIUM 4.1 mmol/L (3.5-5.1)
--- NOTE | 2019-10-07 06:50 | NUR ---
SERVICE GIRL NOTES PATIENT RESTED WELL THOUGHT OUT THE NIGHT. NO S/S OF DISTRESS NOTED. NO ACUTE CHANGES NOTED DURING SHIFT. IV SITES INTACT PATENT FLUSHING WELL. SKIN INTACT WARM AND DRY TO TOUCH. F/C INTACT PATENT URINE DARNING TO GRAVITY. RT HAND SOFT RESTRAIN IN PLACE FOR SAFETY RELEASED AND CHECKED FOR CIRCULATION AND PULSE. ALL NEEDS ATTENDED. ALL SAFETY MEASURES IN PLACE, SIDE RAILS UP X2. BED IN LOW AND LOCKED POSITION. CALL LIGHT WITHIN REACH. WILL ENDORSE TO AM NURSE FOR NILES.
[2019-10-07] MEDS: VANCOMYCIN 1 GM in IV D5W 250 ML IV SCH ×2 (07:41→20:09)
[2019-10-07] MEDS: HYDROCORTISONE SOD SUCCINATE 100 MG/2 ML VIAL IV SCH ×2 (07:41→16:53)
[2019-10-07] MEDS: HEPARIN SODIUM, PORCINE 5000 UNITS/1 ML VIAL SQ SCH ×2 (07:44→21:00)
[2019-10-07] MEDS: MUPIROCIN OINT 2% 22 GM TUBE SCH ×2 (08:00→20:34)
[2019-10-07] MEDS: CLOTRIMAZOLE 1% 15 GM TUBE TP SCH (08:01)
[2019-10-07] MEDS: MEROPENEM 1 G in IV NS 0.9% 100 ML IV SCH ×2 (09:22→21:30)
[2019-10-07] MEDS: MORPHINE SULFATE INJ 4 MG/ML DISP.SYRIN IV PRN ×3 (10:33→23:02)
[2019-10-07 10:54] LABS: EOSINOPHILS % (AUTO) 0.5 % (0.0-6.0); HEMATOCRIT 23 % (39-51); HEMOGLOBIN 7.1 g/dL (13.5-17.5); LYMPHOCYTES % (AUTO) 6.8 % (20.0-44.0); MEAN CORPUSCULAR HGB CONC 31 g/dl (31.0-36.0); MEAN CORPUSCULAR VOLUME 81 fL (80-96); MONOCYTES # (AUTO) 0.6 /CMM (0.1-1.30); MONOCYTES % (AUTO) 3.8 % (2.0-12.0); NEUTROPHILS # (AUTO) 13.7 /CMM (1.8-8.9); NEUTROPHILS % (AUTO) 88.9 % (43.0-81.0); PLATELET COUNT (AUTO) 342 /CMM (150-450); WHITE BLOOD COUNT (AUTO) 15.4 K/uL (4.3-11.0)
[2019-10-07] MEDS: IV D5W 1,000 ML IV SCH (12:01)
[2019-10-07] MEDS: SOD FERRIC GLUC 125 MG in IV NS 0.9% 100 ML IV SCH (14:00)
--- NOTE | 2019-10-07 17:40 | NUR ---
Patient has communicated that he wants to be on comfort care. Verified by witness - chargeback specialistNOAH Rodriguez. Patient unable to speak, however he is A/Ox4 - able to answer questions by mouthing words, nodding yes/no, following command. Verification of orientation tested by asking him what year it is. I said 2014, 2012 and then when I said "2019" he nodded his head. Witnessed by chargeback specialistNOAH Rodriguez. Bran Sethi has been notified
[2019-10-07] MEDS: MICAFUNGIN SODIUM 100 MG in IV NS 0.9% 100 ML IV SCH (17:59)
--- NOTE | 2019-10-07 18:29 | NUR ---
VBA PROGRAMMER Note Patient remains A/Ox4, nonverbal, able to mouth words and nod yes/no appropriately to questions. Patient requested to call [facility]. Called x3, left voicemail, no call back. Then called patient's mom per request, . Endorsed that they should f/u with nursing sup for visitation. See prior note for patient wishes. Tolerating BiPAP FiO2 85%, SPO2 >96%, no SOB noted. Patient medicated as ordered for pain. Tele monitor attached, SR HR 90s, BP WNL throughout shift, no pressors. NPO status maintained although patient repeatedly requested to eat and drink. Masterson draining well. Sacral DTI, wound care completed. Edetamous extremities elevated. R hand restraint. ARIA midline D5W@75mL/hr.
--- NOTE | 2019-10-07 19:30 | NUR ---
REAL ESTATE PARALEGAL NOTES RECEIVED PATIENT IN BED CONTINUES ON BIPAP TOLERATING WELL SATURATING 97%. NO S/S OF SOB NOTED. PATIENT A0X4 AND NODS HIS HEAD YES OR NO ABLE TO FOLLOW DIRECTIONS. TELE MONITOR READING SR. RT HAND SOFT RESTRAIN IN PLACE FOR SAFETY AND CHECKED FOR CIRCULATION AND PULSE. F/C INTACT DARNING WELL. IV SITES INTACT PATENT FLUSHING WELL. SAFETY MEASURES IN PLACE, CALL LIGHT WITHIN REACH. WILL CONT TO MONITOR.
--- NOTE | 2019-10-07 20:50 | NUR ---
TALKED TO DR. VEGA AWAKE PATIENT'S HEMOGLOBIN 7.1, PATIENT IS ON HEPARIN PER MD HOLD THE DOSE AND NEW ORDER FOR PROTONIX AND STOOL FECAL OCCULT. MD INPUT THE ORDERS.
[2019-10-07] MEDS: PANTOPRAZOLE 40 MG VIAL IV SCH (21:30)
[2019-10-08] VITALS (17 sets, daily range): BP systolic 71–106; BP diastolic 38–63
[2019-10-08] MEDS: IV D5W 1,000 ML IV SCH ×2 (00:49→12:03)
[2019-10-08] MEDS: ALBUTEROL HALF STRENGTH 1.25 MG/3 ML VIAL.NEB NEB SCH ×3 (03:19→11:23)
[2019-10-08] MEDS: IPRATROPIUM NEB FS 0.5 MG/2.5 ML AMPUL.NEB NEB SCH ×3 (03:19→11:23)
[2019-10-08 04:54] LABS: BASOPHILS % (AUTO) 0.2 % (0.0-2.0); EOSINOPHILS % (AUTO) 0.4 % (0.0-6.0); HEMATOCRIT 24 % (39-51); HEMOGLOBIN 7.5 g/dL (13.5-17.5); LYMPHOCYTES # (AUTO) 1.1 /CMM (0.8-4.8); LYMPHOCYTES % (AUTO) 7.4 % (20.0-44.0); MEAN CORPUSCULAR HGB CONC 31 g/dl (31.0-36.0); MEAN CORPUSCULAR VOLUME 83 fL (80-96); MONOCYTES # (AUTO) 0.7 /CMM (0.1-1.30); MONOCYTES % (AUTO) 4.9 % (2.0-12.0); NEUTROPHILS # (AUTO) 12.9 /CMM (1.8-8.9); NEUTROPHILS % (AUTO) 87.1 % (43.0-81.0); PLATELET COUNT (AUTO) 339 /CMM (150-450); WHITE BLOOD COUNT (AUTO) 14.8 K/uL (4.3-11.0)
[2019-10-08 05:08] LABS: CALCIUM, SERUM 8.1 mg/dL (8.5-10.1); CREATININE 0.8 mg/dL (0.6-1.3); MAGNESIUM 1.8 mg/dL (1.8-2.4); PHOSPHORUS 2.6 mg/dL (2.5-4.9); POTASSIUM 3.7 mmol/L (3.5-5.1)
--- NOTE | 2019-10-08 07:08 | NUR ---
STRUCTURAL BIOLOGIST NOTES PATIENT REMAINED STABLE NO CHANGES NOTED DURING SHIFT. ROUTING MEDICATIONS WERE GIVEN ALONG WITH PRN'S TOLERATED WELL. IV'S INTACT, PATENT FLUSHING WELL. NO S/S OF ACUTE DISTRESS NOTED. NO SOB NOTED. WOUND CARE DONE ORDERED. F/C INTACT DARNING WELL. SAFETY MEASURES IN PLACE, CALL LIGHT WITHIN REACH. ENDORSE TO AM NURSE FOR NILES.
[2019-10-08] MEDS: MORPHINE SULFATE INJ 4 MG/ML DISP.SYRIN IV PRN (08:45)
[2019-10-08 08:51] LABS: ABG BASE EXCESS 6.1 mmol/L; ABG OXYGEN SATURATION 96.6 % (92.0-98.5); ABG PCO2 45.5 mmHg (35.0-45.0); ABG PH 7.448 (7.350-7.450); ABG PO2 91.2 mmHg (75.0-100.0); AaDO2 467.7 mmHg; COHb 0.2 % (0.5-1.5); MetHb 0.1 % (0.0-1.5); O2Hb 96.3 % (94.0-97.0); SITE, ABG Left Radial; VENT MODE, BG ST 25/10 R16
[2019-10-08] MEDS: HEPARIN SODIUM, PORCINE 5000 UNITS/1 ML VIAL SQ SCH (09:00)
--- NOTE | 2019-10-08 09:05 | NUR ---
OK TO GIVE VANCO DOSE PER SAMI ENRIQUE, VANCO TROUGH RESULT 17
[2019-10-08] MEDS: MEROPENEM 1 G in IV NS 0.9% 100 ML IV SCH (09:14)
[2019-10-08] MEDS: PANTOPRAZOLE 40 MG VIAL IV SCH (09:15)
[2019-10-08] MEDS: CLOTRIMAZOLE 1% 15 GM TUBE TP SCH (09:15)
[2019-10-08] MEDS: MUPIROCIN OINT 2% 22 GM TUBE SCH (09:15)
[2019-10-08] MEDS: HYDROCORTISONE SOD SUCCINATE 100 MG/2 ML VIAL IV SCH (09:15)
[2019-10-08] MEDS: VANCOMYCIN 1 GM in IV D5W 250 ML IV SCH (10:21)
--- NOTE | 2019-10-08 13:20 | NUR ---
PT'S ARI AND MOM AT BEDSIDE. PT ALERT, OX4 EXPRESSED TO FAMILY THAT HE WANTS TO BE COMFORT MEASURES. RN EXPLAINED COMFORT MEASURES AND MORPHINE GTT TO PATIENT. DR. FOLEY IN ICU GAVE ORDERS FOR PATIENT TO BE ON HI-FLOW NC FOR COMFORT, MORPHINE PUSH ORDERED UNTIL MORPHINE GTT AVAILABLE. PT AND FAMILY STATED UNDERSTANDING.
[2019-10-08] MEDS ORDERED: D5W IV PRN (13:21)
[2019-10-08] MEDS ORDERED: MORPHINE SULFATE IV PRN (13:21)
[2019-10-08] MEDS ORDERED: MORPHINE SULFATE INJ 2 MG/ML DISP.SYRIN IV PRN (13:30)
--- NOTE | 2019-10-08 14:46 | NUR ---
PT TRANSFERRED TO ROOM 306 FOR COMFORT MEASURES VIA BED. PT'S MOTHER AND LEFT PRIOR TO TRANSFERRING PATIENT. RN GAVE MORTUARY LIST TO PT'S . RN HANDED UNOPENED MORPHINE GTT AND ORANGE SHEET TO 3W NOAH FONG TO START.
--- NOTE | 2019-10-08 15:00 | NUR ---
Patient transferred from ICU with comforter measure, report by Annetta/RN. Will continue to monitor.
[2019-10-08] MEDS ORDERED: KEY,NONCONTROL,TO KEEP IN PYXI 1 EA MC ONE (16:20)
--- NOTE | 2019-10-08 18:30 | NUR ---
MS/RN Closing Note Patient is in bed comfortably, no appears pain or discomfort. Pt is comforter measure, morphine drip at 5ml/hr at this time. Skin is warm to touch, non labor breathing with oxygen. Call light within reach, will endorse night patrol inspector.
--- NOTE | 2019-10-08 19:10 | NUR ---
RN MS OPENING NOTES RECEIVED PATIENT IN BED OBTUNDED, RESPIRATIONS EVEN AND UNLABORED WITH EQUAL RISE AND CALL OF CHEST, TOLERATING O2 WELL ORDERED, ON MORPHINE DRIP RUNNING AT 5MG. TOLERATING WELL APPEARS COMFORTABLE AT THIS TIME, NO DISTRESS PRESENT, RIGHT UPPER MIDLINE INTACT AND PATENT, NO REDNESS, NO INFILTRATION PRESENT, ALL NEEDS ATTENDED AT THIS TIME, WILL CONTINUE TO MONITOR AND ATTEND TO NEEDS.
--- NOTE | 2019-10-08 23:47 | NUR ---
rn ms notes upon assessment noted patient with no pulse present no respirations present, assessed with charge nurse ludwig. time of called [id number]. post mortem care provided.
--- NOTE | 2019-10-08 23:52 | NUR ---
rn ms notes 1806- notified konrad pittman of pt condition and time of verrifed with 2 RN'S called and spoke to nathalie pa regarding patient . [phone] per nathalie no mortuary is set at this time, made aware we will take body to our mortuary and when [facility] is set to call mixing house operator , number also given. consent to take body to our mortuary.
--- NOTE | 2019-10-08 23:58 | NUR ---
rn ms notes called [facility] , spoke to azalea. whom stated will not proceed with this case. . charge nurse made aware.
--- NOTE | 2019-10-09 00:51 | NUR ---
rn ms notes body taken to mortuary accompanied security staff.
--- NOTE | 2019-10-09 01:10 | NUR ---
rn ms notes morphine witness and wasted with charge nurse ludwig 65 ml wasted.
== END 2019-10-08 23:40 | disposition expired | DRG 720 ==
LOC: ER 17:43 → ICU 21:23 → MED 10-08 14:38
PROVIDERS: ADMIT Family Medicine; ATTEND Nurse Practitioner Acute Care
PROC: 05HY33Z Insertion of Infusion Device into Upper Vein, Percutaneous Approach (ICD-10-PCS; principal; 2019-09-30)
PROC: 5A09557 Assistance with Respiratory Ventilation, Greater than 96 Consecutive Hours, Continuous Positive Airway Pressure (ICD-10-PCS; 2019-10-04)
DX: A41.9 Sepsis, unspecified organism (principal); N17.0 Acute kidney failure with tubular necrosis; R65.21 Severe sepsis with septic shock; E43 Unspecified severe protein-calorie malnutrition; J96.01 Acute respiratory failure with hypoxia; J96.02 Acute respiratory failure with hypercapnia; J15.9 Unspecified bacterial pneumonia; L89.156 Pressure-induced deep tissue damage of sacral region; C85.90 Non-Hodgkin lymphoma, unspecified, unspecified site; N28.1 Cyst of kidney, acquired; J98.11 Atelectasis; B35.1 Tinea unguium; Z51.5 Encounter for palliative care; Z66 Do not resuscitate; E87.1 Hypo-osmolality and hyponatremia; D63.8 Anemia in other chronic diseases classified elsewhere; S90.31XA Contusion of right foot, initial encounter; M62.82 Rhabdomyolysis; Z98.890 Other specified postprocedural states; Z90.49 Acquired absence of other specified parts of digestive tract; Z88.2 Allergy status to sulfonamides; Z79.899 Other long term (current) drug therapy; Z87.891 Personal history of nicotine dependence; Y95 Nosocomial condition; L03.115 Cellulitis of right lower limb; L03.116 Cellulitis of left lower limb; L97.529 Non-pressure chronic ulcer of other part of left foot with unspecified severity; K80.20 Calculus of gallbladder without cholecystitis without obstruction; D50.9 Iron deficiency anemia, unspecified; L97.519 Non-pressure chronic ulcer of other part of right foot with unspecified severity; I89.0 Lymphedema, not elsewhere classified; X58.XXXA Exposure to other specified factors, initial encounter; Y92.9 Unspecified place or not applicable; Z22.322 Carrier or suspected carrier of Methicillin resistant Staphylococcus aureus; E86.9 Volume depletion, unspecified; S90.32XA Contusion of left foot, initial encounter; C90.00 Multiple myeloma not having achieved remission; G89.3 Neoplasm related pain (acute) (chronic); S90.821A Blister (nonthermal), right foot, initial encounter; B95.2 Enterococcus as the cause of diseases classified elsewhere; E86.0 Dehydration; E86.1 Hypovolemia; K76.0 Fatty (change of) liver, not elsewhere classified; E87.0 Hyperosmolality and hypernatremia
CPT/HCPCS: 36410; 36415; 36600; 71045-TC; 74018; 80048-TC; 80053-TC; 80061-TC; 80202-TC; 81000-TC; 82232; 82533; 82550-TC; 82553; 82570-TC; 82728-TC; 82803-TC; 83540-TC; 83605-TC; 83615-TC; 83735-TC; 83880; 83970; 84100-TC; 84155; 84155-TC; 84165; 84300-TC; 84439-TC; 84443-TC; 84484-TC; 85025-TC; 85378-TC; 86140-TC; 87040-TC; 87070-TC; 87081-TC; 87086-TC; 93307-TC; 93970-TC; 94660; 94760-TC; 94799-TC; 99082-TC; A6253; A6403; C9113; G0378; J0692; J0696; J1644; J1720; J2185; J2248; J2270; J2274; J2543; J2916; J3370; J7030; J7040; J7050; J7060; J7070; U0003-CS